=== PATIENT | female | born 1935 | race Caucasian/White ===

== ENCOUNTER 2018-11-19 15:59 | Inpatient (IN) | payer OTHER, MEDICAID ==
[~2018-11-19] VITALS: Ht 167.6 cm; Wt 80.3 kg
[2018-11-19 15:59] VITALS: BP_SYST 145
[2018-11-19] MEDS ORDERED: ONDANSETRON HCL 4 MG/2 ML VIAL IVP ONE (16:15)
[2018-11-19] MEDS ORDERED: fentaNYL CITRATE/PF 100 MCG/2 ML AMP IVP ONE ×2 (16:15→17:15)
[2018-11-19] MEDS ORDERED: NACL 0.9% 1,000 ML IV ONE (16:30)
[2018-11-19 16:32] LABS: BASOPHILS # (AUTO) 0.1 K/uL (0.0-0.2); BASOPHILS % (AUTO) 0.8 % (0.0-2.0); EOSINOPHILS % (AUTO) 0.3 % (0.0-4.0); HEMATOCRIT 31.4 % (36-48); HEMOGLOBIN 10.3 g/dL (12.0-16.0); LYMPHOCYTES # (AUTO) 2.7 K/uL (1.0-5.5); LYMPHOCYTES % (AUTO) 23.4 % (20.5-51.5); MEAN CORPUSCULAR HEMOGLOBIN 30 pg (27-31); MEAN CORPUSCULAR HGB CONC 33 % (32-36); MEAN CORPUSCULAR VOLUME 93 fL (79.0-98.0); MONOCYTES # (AUTO) 1.2 K/uL (0.0-1.0); MONOCYTES % (AUTO) 10.8 % (1.7-9.3); NEUTROPHILS # (AUTO) 7.5 K/uL (1.8-7.7); NEUTROPHILS % (AUTO) 64.7 % (40.0-70.0); PLATELET COUNT (AUTO) 230 K/uL (130-430); RED BLOOD CELL COUNT(AUTO) 3.39 MIL/uL (4.2-6.2); RED CELL DISTRIBUTION WIDTH 13.9 % (9.0-15.0); WHITE BLOOD COUNT (AUTO) 11.5 K/uL (4.8-10.8)
[2018-11-19 16:35] LABS: ANION GAP 10 (5-15); CALCIUM 8.8 mg/dL (8.4-11.0); CHLORIDE 103 mmol/L (98-107); CREATININE 0.98 mg/dL (0.55-1.30); GLUCOSE 102 mg/dL (70-99); POTASSIUM 4.4 mmol/L (3.5-5.1); SODIUM SERUM 140 mmol/L (136-145); UREA NITROGEN, BLOOD 26 mg/dL (8-21)
[2018-11-19 16:41] LABS: ALANINE AMINOTRANSFERASE 15 U/L (12-78); ALBUMIN 3.2 g/dL (3.4-4.8); ASPARTATE AMINOTRANSFERASE 18 U/L (10-37); TOTAL BILIRUBIN 0.7 mg/dL (0.0-1.0)
[2018-11-19 16:49] LABS: BILIRUBIN,URINE NEGATIVE (NEGATIVE); BLOOD, URINE NEGATIVE (NEGATIVE); CLARITY/URINE SL CLOUDY (CLEAR); COLOR,URINE YELLOW (YELLOW); GLUCOSE,URINE NEGATIVE (NEGATIVE); KETONES,URINE NEGATIVE (NEGATIVE); LEUKOCYTE ESTERASE ,URINE NEGATIVE (NEGATIVE); NITRITE, URINE NEGATIVE (NEGATIVE); PROTEIN URINE NEGATIVE (NEGATIVE)
[2018-11-19] MEDS ORDERED: IBUP-1619 PO (17:02)
[2018-11-19] MEDS ORDERED: ACET325C6 PO (17:02)
[2018-11-19] MEDS ORDERED: GABA-529 PO (17:02)
[2018-11-19] MEDS ORDERED: FLUT1DIS5 IH (17:02)
[2018-11-19] MEDS ORDERED: SER100 PO (17:02)
[2018-11-19] MEDS ORDERED: DOCU250C14 PO (17:02)
[2018-11-19] MEDS ORDERED: DULO30CA52 PO (17:02)
[2018-11-19 17:32] LABS: BACTERIA,URINE FEW /HPF (None Seen); RBC,URINE NONE SEEN /HPF (0-3)
[2018-11-19 17:33] LABS: FINE GRANULAR CASTS,URINE 0-10 /LPF (None Seen); MUCUS,URINE 1+ /LPF (None Seen)
[2018-11-19 18:59] VITALS: BP_SYST 124
[2018-11-19] MEDS ORDERED: ONDANSETRON HCL 4 MG/2 ML VIAL IVP PRN (19:15)
[2018-11-19] MEDS ORDERED: ACETAMINOPHEN 325 MG TABLET PO PRN (19:15)
[2018-11-19] MEDS ORDERED: IPRATROPIUM/ALBUTEROL SULFATE 3 ML AMPUL.NEB (DUONEB) INH PRN (19:30)
[2018-11-19] MEDS ORDERED: BUDESONIDE 0.5 MG/2 ML AMPUL.NEB INH ONE (20:00)
[2018-11-19] MEDS ORDERED: ALBUTEROL SULFATE 0.083% 2.5 MG/3 ML VIAL.NEB INH ONE (20:00)
[2018-11-19 20:30] VITALS: BP_SYST 111
[2018-11-19] MEDS ORDERED: NON-FORMULARY MEDICATION (Fluticasone/Salmeterol (Advair 500-50 Diskus) 1 EACH) IH SCH (21:00)
[2018-11-19] MEDS ORDERED: D5/0.45 NS 1,000 ML IV SCH (21:45)
[2018-11-19 22:00] VITALS: BP_SYST 124
[2018-11-19] MEDS: cefTRIAXone 1 GM IVPB PREMIX 50 ML IV SCH (22:21)
[2018-11-19] MEDS: GABAPENTIN 100 MG CAPSULE PO SCH (22:35)
[2018-11-19] MEDS: DOCUSATE SODIUM 100 MG CAPSULE PO SCH (22:35)
[2018-11-19] MEDS: DULoxetine HCL 30 MG CAPSULE.DR (CYMBALTA) PO SCH (22:35)
[2018-11-19] MEDS: QUEtiapine FUMARATE 100 MG TABLET PO SCH (22:36)
[2018-11-20] VITALS: BP_SYST 121
[2018-11-20] MEDS: ALBUTEROL SULFATE 0.083% 2.5 MG/3 ML VIAL.NEB INH SCH ×4 (01:00→20:02)
[2018-11-20 05:36] LABS: BASOPHILS # (AUTO) 0.1 K/uL (0.0-0.2); BASOPHILS % (AUTO) 0.9 % (0.0-2.0); EOSINOPHILS # (AUTO) 0.2 K/uL (0.0-0.4); EOSINOPHILS % (AUTO) 1.7 % (0.0-4.0); HEMATOCRIT 27.3 % (36-48); LYMPHOCYTES # (AUTO) 2.9 K/uL (1.0-5.5); LYMPHOCYTES % (AUTO) 28.3 % (20.5-51.5); MEAN CORPUSCULAR HEMOGLOBIN 31 pg (27-31); MEAN CORPUSCULAR HGB CONC 33 % (32-36); MEAN CORPUSCULAR VOLUME 93 fL (79.0-98.0); MONOCYTES # (AUTO) 1.4 K/uL (0.0-1.0); MONOCYTES % (AUTO) 14.1 % (1.7-9.3); NEUTROPHILS # (AUTO) 5.6 K/uL (1.8-7.7); PLATELET COUNT (AUTO) 199 K/uL (130-430); RED BLOOD CELL COUNT(AUTO) 2.92 MIL/uL (4.2-6.2); RED CELL DISTRIBUTION WIDTH 13.8 % (9.0-15.0); WHITE BLOOD COUNT (AUTO) 10.2 K/uL (4.8-10.8)
[2018-11-20 05:59] LABS: PROTHROMBIN TIME 10.4 SECS (9.5-12.5)
[2018-11-20 06:19] LABS: ALANINE AMINOTRANSFERASE 13 U/L (12-78); ALBUMIN 2.7 g/dL (3.4-4.8); ANION GAP 5 (5-15); ASPARTATE AMINOTRANSFERASE 16 U/L (10-37); CALCIUM 8.2 mg/dL (8.4-11.0); CHLORIDE 108 mmol/L (98-107); CREATININE 0.79 mg/dL (0.55-1.30); GLUCOSE 105 mg/dL (70-99); POTASSIUM 4.2 mmol/L (3.5-5.1); SODIUM SERUM 141 mmol/L (136-145); TOTAL BILIRUBIN 0.4 mg/dL (0.0-1.0); UREA NITROGEN, BLOOD 23 mg/dL (8-21)
[2018-11-20] MEDS: BUDESONIDE 0.5 MG/2 ML AMPUL.NEB INH SCH ×2 (07:00→20:01)
[2018-11-20 08:04] VITALS: BP_SYST 96
[2018-11-20] MEDS: DOCUSATE SODIUM 100 MG CAPSULE PO SCH ×2 (09:00→21:20)
[2018-11-20] MEDS: QUEtiapine FUMARATE 100 MG TABLET PO SCH ×2 (09:00→21:21)
[2018-11-20] MEDS: DULoxetine HCL 30 MG CAPSULE.DR (CYMBALTA) PO SCH ×2 (09:00→21:21)
[2018-11-20] MEDS: GABAPENTIN 100 MG CAPSULE PO SCH ×2 (09:00→21:20)
[2018-11-20] MEDS ORDERED: VANCOMYCIN HCL 1 GM/NS PREMIX 250 ML IV ONE (10:00)
[2018-11-20] MEDS ORDERED: POLYMYXIN 500,000/BACIT.10,000 UNITS in NS IRR 1 L IR ONE (10:16)
[2018-11-20] MEDS ORDERED: LR 1,000 ML IV SCH (11:12)
[2018-11-20] MEDS ORDERED: MORPHINE 4 MG/ML INJ. SYRINGE IVP PRN ×3 (11:15)
[2018-11-20] MEDS ORDERED: METOCLOPRAMIDE HCL 10 MG/2 ML VIAL IVP PRN (11:15)
[2018-11-20] MEDS ORDERED: SEVOFLURANE 15 MIN GAS INH ONE (12:20)
[2018-11-20] MEDS ORDERED: ONDANSETRON HCL 4 MG/2 ML VIAL ONE (12:20)
[2018-11-20] MEDS ORDERED: MORPHINE SULFATE 10MG/10ML PF AMP ONE (12:20)
[2018-11-20] MEDS ORDERED: PROPOFOL 200MG/ 20ML VIAL (DIPRIVAN) IV ONE (12:20)
[2018-11-20] MEDS ORDERED: LR 1,000 ML IV.SOLN IV ONE (12:20)
[2018-11-20] MEDS ORDERED: MIDAZOLAM HCL 5 MG/ML VIAL (VERSED) IV ONE (12:20)
[2018-11-20] MEDS ORDERED: fentaNYL 2MCG/ML ROPIVACAINE 0.2% 100 ML EPIDURAL BAG EP ONE (12:20)
[2018-11-20] MEDS ORDERED: ROCURONIUM BROMIDE 10 MG/ML (ZEMURON) ONE (12:20)
[2018-11-20] MEDS ORDERED: DIPHENHYDRAMINE HCL 25 MG CAPSULE PO PRN (12:30)
[2018-11-20] MEDS ORDERED: SENNOSIDES 8.6 MG TABLET PO PRN (12:30)
[2018-11-20] MEDS ORDERED: ACETAMINOPHEN 325 MG TABLET PO PRN (12:30)
[2018-11-20] MEDS ORDERED: ONDANSETRON HCL 4 MG/2 ML VIAL IVP PRN (12:30)
[2018-11-20] MEDS ORDERED: MILK OF MAGNESIA 30 ML UDC PO PRN (12:30)
[2018-11-20] MEDS: D5LR 1,000 ML IV SCH (15:06)
[2018-11-20 16:30] VITALS: BP_SYST 119
[2018-11-20] MEDS: MORPHINE 2 MG/ML INJ. SYRINGE IVP PRN (18:52)
[2018-11-20 19:44] VITALS: BP_SYST 113
[2018-11-20] MEDS: HYDROcodone/ACETAMIN 5-325 MG TAB (NORCO/ VICODIN) PO PRN (19:52)
[2018-11-20] MEDS: cefTRIAXone 1 GM IVPB PREMIX 50 ML IV SCH (20:00)
[2018-11-21] VITALS: BP_SYST 104
[2018-11-21] MEDS: D5LR 1,000 ML IV SCH ×3 (01:16→18:27)
[2018-11-21] MEDS: ALBUTEROL SULFATE 0.083% 2.5 MG/3 ML VIAL.NEB INH SCH ×3 (07:44→19:45)
[2018-11-21] MEDS: BUDESONIDE 0.5 MG/2 ML AMPUL.NEB INH SCH ×2 (07:44→19:45)
[2018-11-21 07:48] LABS: BASOPHILS # (AUTO) 0.1 K/uL (0.0-0.2); BASOPHILS % (AUTO) 0.8 % (0.0-2.0); EOSINOPHILS # (AUTO) 0.1 K/uL (0.0-0.4); EOSINOPHILS % (AUTO) 0.6 % (0.0-4.0); HEMATOCRIT 23.3 % (36-48); HEMOGLOBIN 7.7 g/dL (12.0-16.0); LYMPHOCYTES # (AUTO) 2.2 K/uL (1.0-5.5); LYMPHOCYTES % (AUTO) 19.7 % (20.5-51.5); MEAN CORPUSCULAR HEMOGLOBIN 31 pg (27-31); MEAN CORPUSCULAR HGB CONC 33 % (32-36); MEAN CORPUSCULAR VOLUME 94 fL (79.0-98.0); MONOCYTES # (AUTO) 1.8 K/uL (0.0-1.0); MONOCYTES % (AUTO) 15.8 % (1.7-9.3); NEUTROPHILS % (AUTO) 63.1 % (40.0-70.0); PLATELET COUNT (AUTO) 181 K/uL (130-430); RED BLOOD CELL COUNT(AUTO) 2.48 MIL/uL (4.2-6.2); RED CELL DISTRIBUTION WIDTH 13.8 % (9.0-15.0); WHITE BLOOD COUNT (AUTO) 11.1 K/uL (4.8-10.8)
[2018-11-21 07:59] LABS: ANION GAP 6 (5-15); CHLORIDE 108 mmol/L (98-107); CREATININE 0.96 mg/dL (0.55-1.30); GLUCOSE 155 mg/dL (70-99); POTASSIUM 4.4 mmol/L (3.5-5.1); SODIUM SERUM 140 mmol/L (136-145); UREA NITROGEN, BLOOD 18 mg/dL (8-21)
[2018-11-21 08:00] VITALS: BP_SYST 110
[2018-11-21] MEDS: MORPHINE 2 MG/ML INJ. SYRINGE IVP PRN ×2 (08:23→13:48)
[2018-11-21] MEDS ORDERED: ACETAMINOPHEN 325 MG TABLET PO ONE (08:30)
[2018-11-21] MEDS ORDERED: DIPHENHYDRAMINE HCL 12.5 MG/5 ML UDC NG ONE (08:30)
[2018-11-21] MEDS: QUEtiapine FUMARATE 100 MG TABLET PO SCH ×2 (08:58→22:13)
[2018-11-21] MEDS: GABAPENTIN 100 MG CAPSULE PO SCH ×2 (08:58→22:13)
[2018-11-21] MEDS: DOCUSATE SODIUM 100 MG CAPSULE PO SCH ×2 (08:58→22:13)
[2018-11-21] MEDS: DULoxetine HCL 30 MG CAPSULE.DR (CYMBALTA) PO SCH ×2 (08:58→22:13)
[2018-11-21] MEDS: ENOXAPARIN SODIUM 40 MG/0.4 ML SYRINGE SUBCUT SCH (08:58)
[2018-11-21] MEDS ORDERED: VANCOMYCIN HCL 1 GM/NS PREMIX 250 ML IV ONE (10:00)
[2018-11-21 16:45] VITALS: BP_SYST 100
[2018-11-21] MEDS: cefTRIAXone 1 GM IVPB PREMIX 50 ML IV SCH (20:24)
[2018-11-21] MEDS: HYDROcodone/ACETAMIN 5-325 MG TAB (NORCO/ VICODIN) PO PRN (20:31)
[2018-11-21 20:36] VITALS: BP_SYST 110
[2018-11-22] MEDS: ALBUTEROL SULFATE 0.083% 2.5 MG/3 ML VIAL.NEB INH SCH ×4 (01:00→19:00)
[2018-11-22 01:30] VITALS: BP_SYST 116
[2018-11-22] MEDS: BUDESONIDE 0.5 MG/2 ML AMPUL.NEB INH SCH ×2 (07:47→19:00)
[2018-11-22 07:51] VITALS: BP_SYST 108
[2018-11-22] MEDS: QUEtiapine FUMARATE 100 MG TABLET PO SCH ×2 (09:19→20:14)
[2018-11-22] MEDS: DOCUSATE SODIUM 100 MG CAPSULE PO SCH ×2 (09:19→20:14)
[2018-11-22] MEDS: GABAPENTIN 100 MG CAPSULE PO SCH ×2 (09:19→20:14)
[2018-11-22] MEDS: DULoxetine HCL 30 MG CAPSULE.DR (CYMBALTA) PO SCH ×2 (09:19→20:14)
[2018-11-22] MEDS: MORPHINE 2 MG/ML INJ. SYRINGE IVP PRN (09:26)
[2018-11-22] MEDS: ENOXAPARIN SODIUM 40 MG/0.4 ML SYRINGE SUBCUT SCH (09:28)
[2018-11-22] MEDS: VANCOMYCIN HCL 1,250 MG in NS 250 ML IV SCH (12:00)
[2018-11-22 12:30] VITALS: BP_SYST 103
[2018-11-22 13:12] LABS: MEAN CORPUSCULAR HEMOGLOBIN 30 pg (27-31); MEAN CORPUSCULAR HGB CONC 33 % (32-36); MEAN CORPUSCULAR VOLUME 91 fL (79.0-98.0); PLATELET COUNT (AUTO) 193 K/uL (130-430); RED CELL DISTRIBUTION WIDTH 15.4 % (9.0-15.0); WHITE BLOOD COUNT (AUTO) 15.4 K/uL (4.8-10.8)
[2018-11-22 14:14] LABS: LYMPHOCYTES % (MANUAL) 20 % (20-46)
[2018-11-22 14:15] LABS: BASOPHILS % (MANUAL) 0 % (0-2); EOSINOPHILS % (MANUAL) 0 % (0-7); MONOCYTES % (MANUAL) 10 % (0-11)
[2018-11-22 14:43] VITALS: BP_SYST 103
[2018-11-22 16:35] VITALS: BP_SYST 129
[2018-11-22] MEDS: HYDROcodone/ACETAMIN 5-325 MG TAB (NORCO/ VICODIN) PO PRN (16:41)
[2018-11-22 20:00] VITALS: BP_SYST 99
[2018-11-22] MEDS: cefTRIAXone 1 GM IVPB PREMIX 50 ML IV SCH (20:00)
[2018-11-23] MEDS: ALBUTEROL SULFATE 0.083% 2.5 MG/3 ML VIAL.NEB INH SCH ×3 (00:25→19:00)
[2018-11-23] MEDS: D5LR 1,000 ML IV SCH ×3 (00:27→20:38)
[2018-11-23 00:45] VITALS: BP_SYST 108
[2018-11-23] MEDS: BUDESONIDE 0.5 MG/2 ML AMPUL.NEB INH SCH ×2 (07:17→19:00)
[2018-11-23 07:51] VITALS: BP_SYST 124
[2018-11-23] MEDS: DULoxetine HCL 30 MG CAPSULE.DR (CYMBALTA) PO SCH ×2 (08:52→20:35)
[2018-11-23] MEDS: GABAPENTIN 100 MG CAPSULE PO SCH ×2 (08:52→20:35)
[2018-11-23] MEDS: DOCUSATE SODIUM 100 MG CAPSULE PO SCH ×2 (08:52→20:35)
[2018-11-23] MEDS: QUEtiapine FUMARATE 100 MG TABLET PO SCH ×2 (08:57→20:35)
[2018-11-23] MEDS: HYDROcodone/ACETAMIN 5-325 MG TAB (NORCO/ VICODIN) PO PRN ×2 (08:57→18:36)
[2018-11-23] MEDS: ENOXAPARIN SODIUM 40 MG/0.4 ML SYRINGE SUBCUT SCH (08:59)
[2018-11-23] MEDS: cefTRIAXone 1 GM IVPB PREMIX 50 ML IV SCH (09:01)
[2018-11-23] MEDS: VANCOMYCIN HCL 1,250 MG in NS 250 ML IV SCH (10:23)
[2018-11-23 11:43] LABS: BASOPHILS # (AUTO) 0.1 K/uL (0.0-0.2); BASOPHILS % (AUTO) 0.8 % (0.0-2.0); EOSINOPHILS # (AUTO) 0.3 K/uL (0.0-0.4); EOSINOPHILS % (AUTO) 3.1 % (0.0-4.0); HEMATOCRIT 27.6 % (36-48); HEMOGLOBIN 9.2 g/dL (12.0-16.0); LYMPHOCYTES # (AUTO) 2.5 K/uL (1.0-5.5); LYMPHOCYTES % (AUTO) 22.6 % (20.5-51.5); MEAN CORPUSCULAR HEMOGLOBIN 30 pg (27-31); MEAN CORPUSCULAR HGB CONC 33 % (32-36); MEAN CORPUSCULAR VOLUME 91 fL (79.0-98.0); MONOCYTES # (AUTO) 1.2 K/uL (0.0-1.0); MONOCYTES % (AUTO) 10.9 % (1.7-9.3); NEUTROPHILS # (AUTO) 6.8 K/uL (1.8-7.7); NEUTROPHILS % (AUTO) 62.6 % (40.0-70.0); PLATELET COUNT (AUTO) 239 K/uL (130-430); RED BLOOD CELL COUNT(AUTO) 3.03 MIL/uL (4.2-6.2); RED CELL DISTRIBUTION WIDTH 15.4 % (9.0-15.0); WHITE BLOOD COUNT (AUTO) 10.9 K/uL (4.8-10.8)
[2018-11-23 11:51] LABS: ANION GAP 4 (5-15); CALCIUM 8.2 mg/dL (8.4-11.0); CHLORIDE 106 mmol/L (98-107); CREATININE 0.76 mg/dL (0.55-1.30); GLUCOSE 106 mg/dL (70-99); POTASSIUM 4.2 mmol/L (3.5-5.1); SODIUM SERUM 137 mmol/L (136-145); UREA NITROGEN, BLOOD 16 mg/dL (8-21)
[2018-11-23 12:28] VITALS: BP_SYST 102
[2018-11-23 16:35] VITALS: BP_SYST 114
[2018-11-23 20:00] VITALS: BP_SYST 118
[2018-11-24] VITALS: BP_SYST 96
[2018-11-24] MEDS: ALBUTEROL SULFATE 0.083% 2.5 MG/3 ML VIAL.NEB INH SCH ×4 (00:55→19:36)
[2018-11-24] MEDS: D5LR 1,000 ML IV SCH ×2 (05:09→16:27)
[2018-11-24] MEDS: BUDESONIDE 0.5 MG/2 ML AMPUL.NEB INH SCH ×2 (07:12→19:36)
[2018-11-24] MEDS: DOCUSATE SODIUM 100 MG CAPSULE PO SCH ×2 (09:38→21:51)
[2018-11-24] MEDS: QUEtiapine FUMARATE 100 MG TABLET PO SCH ×2 (09:38→21:51)
[2018-11-24] MEDS: cefTRIAXone 1 GM IVPB PREMIX 50 ML IV SCH (09:38)
[2018-11-24] MEDS: GABAPENTIN 100 MG CAPSULE PO SCH ×2 (09:39→21:51)
[2018-11-24] MEDS: DULoxetine HCL 30 MG CAPSULE.DR (CYMBALTA) PO SCH ×2 (09:39→21:51)
[2018-11-24] MEDS: ENOXAPARIN SODIUM 40 MG/0.4 ML SYRINGE SUBCUT SCH (09:41)
[2018-11-24] MEDS: VANCOMYCIN HCL 1,250 MG in NS 250 ML IV SCH (10:39)
[2018-11-24] MEDS: HYDROcodone/ACETAMIN 5-325 MG TAB (NORCO/ VICODIN) PO PRN ×2 (10:48→20:21)
[2018-11-24 11:41] VITALS: BP_SYST 136
[2018-11-24 15:22] VITALS: BP_SYST 103
[2018-11-24 20:10] VITALS: BP_SYST 114
[2018-11-25 00:06] VITALS: BP_SYST 97
[2018-11-25] MEDS: ALBUTEROL SULFATE 0.083% 2.5 MG/3 ML VIAL.NEB INH SCH ×3 (01:00→13:19)
[2018-11-25] MEDS: D5LR 1,000 ML IV SCH ×2 (05:01→12:27)
[2018-11-25] MEDS: BUDESONIDE 0.5 MG/2 ML AMPUL.NEB INH SCH (07:42)
[2018-11-25] MEDS: MORPHINE 2 MG/ML INJ. SYRINGE IVP PRN (08:55)
[2018-11-25] MEDS: DULoxetine HCL 30 MG CAPSULE.DR (CYMBALTA) PO SCH (09:46)
[2018-11-25] MEDS: GABAPENTIN 100 MG CAPSULE PO SCH (09:46)
[2018-11-25] MEDS: DOCUSATE SODIUM 100 MG CAPSULE PO SCH (09:46)
[2018-11-25] MEDS: QUEtiapine FUMARATE 100 MG TABLET PO SCH (09:46)
[2018-11-25] MEDS: ENOXAPARIN SODIUM 40 MG/0.4 ML SYRINGE SUBCUT SCH (09:48)
[2018-11-25] MEDS ORDERED: CEFEPIME 1 GM in D5W 50 ML IV SCH (10:00)
[2018-11-25] MEDS: HYDROcodone/ACETAMIN 5-325 MG TAB (NORCO/ VICODIN) PO PRN ×2 (11:22→18:25)
[2018-11-25] MEDS: VANCOMYCIN HCL 1,250 MG in NS 250 ML IV SCH (11:25)
[2018-11-25] MEDS ORDERED: LORazepam 2 MG/ML VIAL IVP ONE (13:00)
[2018-11-25 13:01] VITALS: BP_SYST 112
[2018-11-25 13:33] LABS: PROTHROMBIN TIME 9.7 SECS (9.5-12.5)
[2018-11-25 16:13] VITALS: BP_SYST 112
[2018-11-25 16:37] VITALS: BP_SYST 107
== END 2018-11-25 18:50 | DRG 981 ==
LOC: SED 15:59 → SMU 17:35
PROVIDERS: ADMIT Internal Medicine; ATTEND Internal Medicine
PROC: 0QS706Z Reposition Left Upper Femur with Intramedullary Internal Fixation Device, Open Approach (ICD-10-PCS; principal; 2018-11-20 10:00)
PROC: 30233N1 Transfusion of Nonautologous Red Blood Cells into Peripheral Vein, Percutaneous Approach (ICD-10-PCS; 2018-11-21)
PROC: 02HV33Z Insertion of Infusion Device into Superior Vena Cava, Percutaneous Approach (ICD-10-PCS; 2018-11-25)
PROC: B548ZZA Ultrasonography of Superior Vena Cava, Guidance (ICD-10-PCS; 2018-11-25)
DX: T82.848A Pain due to vascular prosthetic devices, implants and grafts, initial encounter (principal); S72.142A Displaced intertrochanteric fracture of left femur, initial encounter for closed fracture; J18.9 Pneumonia, unspecified organism; N39.0 Urinary tract infection, site not specified; R78.81 Bacteremia; I38 Endocarditis, valve unspecified; F20.9 Schizophrenia, unspecified; B95.8 Unspecified staphylococcus as the cause of diseases classified elsewhere; F03.90 Unspecified dementia, unspecified severity, without behavioral disturbance, psychotic disturbance, mood disturbance, and anxiety; I25.10 Atherosclerotic heart disease of native coronary artery without angina pectoris; J44.9 Chronic obstructive pulmonary disease, unspecified; M19.90 Unspecified osteoarthritis, unspecified site; M48.061 Spinal stenosis, lumbar region without neurogenic claudication; D64.9 Anemia, unspecified; W18.39XA Other fall on same level, initial encounter; G62.9 Polyneuropathy, unspecified; N18.9 Chronic kidney disease, unspecified; I12.9 Hypertensive chronic kidney disease with stage 1 through stage 4 chronic kidney disease, or unspecified chronic kidney disease; Z87.891 Personal history of nicotine dependence; Z79.899 Other long term (current) drug therapy; Y93.89 Activity, other specified; Y92.89 Other specified places as the place of occurrence of the external cause; Y99.8 Other external cause status
CPT/HCPCS: 36415; 71045; 72170-TC; 76001; 80048; 80053; 81000-TC; 83605; 85007; 85025; 85027; 85610-TC; 85730-TC; 86886; 86900; 86901; 86920; 87040-TC; 87081; 87086; 87186-TC; 93005; 94010; 94640; 94760; 96361; 96374; 96375; 96376; 97110-GP; 97530-GP; 99285; C1713; C1751; J0692; J0696; J1650; J2250; J2270; J2274; J2405; J2704; J3010; J3370; J7050; J7060; J7120; J7613; J7626; P9021; Q0163

== ENCOUNTER 2018-11-27 23:07 | Inpatient (IN) | payer OTHER, MEDICAID ==
[~2018-11-27] VITALS: Ht 167.6 cm; Wt 86.2 kg
[~2018-11-27 23:07] MED LIST: ACET325C6 PO; DOCU250C14 PO; DULO30CA52 PO; FLUT1DIS5 IH; GABA-529 PO; IBUP-1619 PO; SER100 PO
[2018-11-28] VITALS (7 sets, daily range): BP systolic 103–118
--- NOTE | 2018-11-28 00:04 | NUR ---
ADMISSION NOTE Received patient a direct admit from [facility], report received from medic personnel. Patient admitted with diagnosis of Bacteremia. Patient oriented to hospital routine, call light.
--- NOTE | 2018-11-28 00:30 | NUR ---
INITIAL NOTE AT INITIAL ASSESSMENT, PATIENT IS RESTING IN BED, STABLE, NO SIGNS OF RESPIRATORY DISTRESS. PATIENT VERBALIZES NO PAIN AT THIS TIME. PLAN OF CARE FOR THE EVENING IS COMMUNICATED WITH THE PATIENT. CALL LIGHT IS WITHIN REACH. BED IS LOCKED, ALARMED, AND AT THE LOWEST LEVEL. FALL AND SAFETY PRECAUTIONS WILL BE IN PLACE THROUGHOUT THE SHIFT.
--- NOTE | 2018-11-28 00:40 | NUR ---
paged paged for Dr Veliz, dialed . s/w Tory.
--- NOTE | 2018-11-28 00:45 | NUR ---
COMMUNICATION WITH Padilla NICHOLSON. dAriano NICHOLSON PAGED BACK AT THIS TIME, PHYSICIAN HAS ADMIT ORDERS FOR OBSERVATION. MD HAS REQUESTED MEDICATION SHEET FROM PATIENT'S NURSING FACILITY; PATIENT'S ONLY MEDICATIONS FROM [facility] (VANCOMYCIN AND CEFEPIME) COMMUNICATED; DR. KOEHLER IS REQUESTING FOR THE REST OF PATIENT'S MEDICATIONS FROM HER NURSING FACILITY. PATIENT'S NURSING FACILITY ([facility]) WILL BE PAGED IMMEDIATELY FOR FAXED COPY OF PATIENT'S MEDICATION LIST TO BE PROVIDED TO DR. KOEHLER IMMEDIATELY. Addendum: 11/28/18 at 0130 by Gloria Mosqueda RN CHARGE NURSE ROBERT PURI
--- NOTE | 2018-11-28 00:55 | NUR ---
[facility] [place], dialed . s/w Archie, requested for the patient's list of medications.
[2018-11-28] MEDS ORDERED: NON-FORMULARY MEDICATION (Acetaminophen (Tylenol) 650 MG) PO SCH (01:15)
[2018-11-28] MEDS ORDERED: NON-FORMULARY MEDICATION (Ibuprofen 200 MG) PO SCH (01:15)
[2018-11-28] MEDS ORDERED: CEFEPIME 1 GM in D5W 50 ML IV SCH (01:15)
[2018-11-28] MEDS ORDERED: VANCOMYCIN HCL 1 GM/NS PREMIX 250 ML IV SCH ×2 (01:15→01:45)
--- NOTE | 2018-11-28 01:16 | NUR ---
[facility] second call to [facility], dialed . s/w Archie, followed-up with requested for the patient's list of medications. stated that he will fax again.
--- NOTE | 2018-11-28 01:30 | NUR ---
PATIENT REFUSES IV PLACEMENT PATIENT IS REFUSING IV PLACEMENT AT THIS TIME DESPITE EDUCATIONAL EFFORTS. WILL CONTINUE TO ENCOURAGE THROUGHOUT THE SHIFT.
[2018-11-28] MEDS ORDERED: ALBUTEROL SULFATE 0.083% 2.5 MG/3 ML VIAL.NEB INH PRN (01:45)
[2018-11-28] MEDS ORDERED: IBUPROFEN 200 MG TABLET PO PRN (01:45)
[2018-11-28] MEDS ORDERED: ACETAMINOPHEN 500 MG TABLET PO PRN (01:45)
--- NOTE | 2018-11-28 02:00 | NUR ---
NOTE PATIENT IS SLEEPING, STABLE, NO SIGNS OF RESPIRATORY DISTRESS. CALL LIGHT IS WITHIN REACH. BED IS LOCKED, ALARMED, AND AT THE LOWEST LEVEL.
--- NOTE | 2018-11-28 04:00 | NUR ---
NOTE PATIENT IS SLEEPING, STABLE, NO SIGNS OF RESPIRATORY DISTRESS. CALL LIGHT IS WITHIN REACH. BED IS LOCKED, ALARMED, AND AT THE LOWEST LEVEL.
--- NOTE | 2018-11-28 04:04 | NUR ---
Psych Consultation Paged Reason for consultation: Schizophrenia Was consult called: Yes Person who was notified: Marcie Consulting Physician: Dr Cage Fire Equipment Inspector Helper Specialty: Psych Fire Equipment Inspector Helper Ordered By: Dr Veliz
--- NOTE | 2018-11-28 04:09 | NUR ---
ID Consultation Paged Reason for consultation: Bacteremia Was consult called: Yes Person who was notified: Marcie Consulting Physician: Dr Denise; Dr Courtney is on-call Special Events Planner Specialty: ID Special Events Planner Ordered By: Dr Veliz
--- NOTE | 2018-11-28 06:00 | NUR ---
CLOSING NOTE PATIENT SLEPT WELL THROUGHOUT THE SHIFT, HER MOOD BECAME UNCOOPERATIVE TO PROTOCOL ADMISSION INTERVENTIONS SOON AFTER SHE WAS ADMITTED. AM NURSE MADE AWARE. AT THIS TIME, PATIENT IS RESTING IN BED, STABLE, NO SIGNS OF RESPIRATORY DISTRESS. CALL LIGHT IS WITHIN REACH. BED IS LOCKED, ALARMED, AND AT THE LOWEST LEVEL. FALL AND SAFETY PRECAUTIONS HAVE BEEN TAKEN THROUGHOUT THE SHIFT. WILL CONTINUE TO MONITOR UNTIL SHIFT REPORT IS GIVEN AT BEDSIDE TO AM NURSE.
--- NOTE | 2018-11-28 06:10 | NUR ---
PATIENT REFUSES LAB DRAW PATIENT IS REFUSING LAB DRAW AT THIS TIME, COTTON ACREAGE MEASURER REQUESTED TO TRY AGAIN LATER, COTTON ACREAGE MEASURER VERBALIZED BACK REQUEST. WILL COMMUNICATE TO AM NURSE.
--- NOTE | 2018-11-28 06:15 | NUR ---
UNABLE TO REACH CONSERVATOR PATIENT'S CONSERVATOR (BROOKE ZHAO [phone]) PAGED AT THIS TIME FOR PICC LINE CONSENT. VOICEMAIL REACHED WAS FOR A DENTAL COMPANY, WILL ENDORSE TO AM SHIFT TO FOLLOW UP WITH CORRECT PHONE NUMBER FOR PATIENT'S CONSERVATOR.
--- NOTE | 2018-11-28 07:50 | NUR ---
OPENING NOTE PATIENT AWAKE IN BED. A/OX1. ROOM AIR. NO ACUTE DISTRESS. NO SOB. RESPIRATION EVEN AND UNLABORED. SKIN WARM AND DRY TO TOUCH. NO IV LINE. AWAITING FOR PICC LINE INSERTION. PATIENT S/P LEFT HIP ORIF WITH STERI STRIPS INTACT AND NO BLEEDING/DISCHARGE NOTED. BED IN LOW AND LOCKED POSITION. SIDERAIL UPX3. BED ALARM ON. ORIENTED PATIENT TO ROOM, BED AND CALL LIGHT. ALL NEEDS MET. CONT TO MONITOR WITH FREQUENT VISUAL CHECKS
--- NOTE | 2018-11-28 08:34 | NUR ---
Patient alert/oriented to herself refused for IV insertion for antibiotic medication.
[2018-11-28] MEDS ORDERED: QUEtiapine FUMARATE 100 MG TABLET PO SCH (09:00)
--- NOTE | 2018-11-28 09:00 | NUR ---
SPOKE TO AND REPORTED TO MD PATIENT IS REFUSING BLOOD DRAW AND PERIPHERAL IV INSERTION. RECEIVED ORDER FROM FOR BILAT SOFT WRIST RESTRAINTS, PICC LINE AND DAMON EVALUATION. ORDER NOTED AND CARRIED OUT. Addendum: 11/28/18 at 1430 by Shauna Marquis RN PICC LINE ORDER GIVEN TO CERAMIC MOLD DESIGNER; AWAITING FOR CALL BACK
--- NOTE | 2018-11-28 09:09 | NUR ---
Consent for PICC LINE/RESTRAINST Spoke to patient decision maker Nataliia Garcia , consent for PICC LINE insertion for IV antibiotic ,Bilateral wrist restraints patient uncooperative pulling out lines,confusion at time , risk of falling given.
[2018-11-28] MEDS: DULoxetine HCL 30 MG CAPSULE.DR (CYMBALTA) PO SCH ×2 (09:21→21:38)
[2018-11-28] MEDS: QUEtiapine FUMARATE 100 MG TABLET PO SCH ×2 (09:21→21:39)
[2018-11-28] MEDS: DOCUSATE SODIUM 250 MG CAPSULE PO SCH (09:21)
[2018-11-28] MEDS: GABAPENTIN 100 MG CAPSULE PO SCH ×2 (09:21→21:38)
[2018-11-28] MEDS: ENOXAPARIN SODIUM 40 MG/0.4 ML SYRINGE SUBCUT SCH (09:22)
[2018-11-28] MEDS: CEFEPIME 1 GM in D5W 50 ML IV SCH (10:00)
--- NOTE | 2018-11-28 10:31 | NUR ---
Nutrition Update Kan Scale 17 noted. Pt admitted for bacteremia. Diet: regular BMI: 30.7 kg/m2 RD to follow per nutrition care standards.
--- NOTE | 2018-11-28 10:40 | NUR ---
SEEN AND EXAMINED BY AT BEDSIDE
[2018-11-28] MEDS ORDERED: LINEZOLID 600 MG TABLET PO ONE (10:45)
--- NOTE | 2018-11-28 11:00 | NUR ---
PICC PER PHP MYSQL WEB DEVELOPER JACKI WILL CALL BACK REGARDING PICC LINE INSERTION; AWAITING FOR CALL BACK
[2018-11-28 11:41] LABS: BASOPHILS # (AUTO) 0.1 K/uL (0.0-0.2); BASOPHILS % (AUTO) 1.2 % (0.0-2.0); EOSINOPHILS # (AUTO) 0.4 K/uL (0.0-0.4); EOSINOPHILS % (AUTO) 4.3 % (0.0-4.0); HEMATOCRIT 29.4 % (36-48); HEMOGLOBIN 9.7 g/dL (12.0-16.0); LYMPHOCYTES # (AUTO) 2.1 K/uL (1.0-5.5); LYMPHOCYTES % (AUTO) 22.8 % (20.5-51.5); MEAN CORPUSCULAR HEMOGLOBIN 30 pg (27-31); MEAN CORPUSCULAR HGB CONC 33 % (32-36); MEAN CORPUSCULAR VOLUME 91 fL (79.0-98.0); MONOCYTES # (AUTO) 0.9 K/uL (0.0-1.0); MONOCYTES % (AUTO) 10.5 % (1.7-9.3); NEUTROPHILS # (AUTO) 5.5 K/uL (1.8-7.7); NEUTROPHILS % (AUTO) 61.2 % (40.0-70.0); RED BLOOD CELL COUNT(AUTO) 3.23 MIL/uL (4.2-6.2); RED CELL DISTRIBUTION WIDTH 15.8 % (9.0-15.0)
[2018-11-28 11:51] LABS: ANION GAP 5 (5-15); CALCIUM 8.2 mg/dL (8.4-11.0); CHLORIDE 107 mmol/L (98-107); CREATININE 0.72 mg/dL (0.55-1.30); GLUCOSE 113 mg/dL (70-99); POTASSIUM 3.8 mmol/L (3.5-5.1); SODIUM SERUM 139 mmol/L (136-145); UREA NITROGEN, BLOOD 15 mg/dL (8-21)
[2018-11-28 11:56] LABS: PROTHROMBIN TIME 10.3 SECS (9.5-12.5)
[2018-11-28 12:16] LABS: PLATELET COUNT (AUTO) 512 K/uL (130-430)
--- NOTE | 2018-11-28 12:45 | NUR ---
NOTE PATIENT ATE A SMALL AMOUNT AT LUNCH AND REFUSED TO EAT ANYMORE. OFFERED PATIENT JELLO AND PATIENT OKAY. ALL NEEDS MET. CONT TO MONITOR. CALL LIGHT IN REACH.
--- NOTE | 2018-11-28 13:00 | NUR ---
PICC NO CALL BACK FROM JACKI PICC LINE NURSE. BREAKER OILER CALLED AGAIN. AWAITING FOR JACKI PICC LINE NURSE, TO CALL BACK.
--- NOTE | 2018-11-28 14:15 | NUR ---
NOTE INCONTINENCE CARE PROVIDED WITH TOBACCO WAREHOUSE AGENT, PT YURIDIA WELL. BMX1. REPOSITIONED FOR COMFORT. PATIENT C/O 08/04 FOR GENERALIZED PAIN; ADVIL ADMINISTERED ORDERED, YURIDIA WELL. CALL LIGHT IN REACH. ALL NEEDS MET. CONT TO MONITOR
--- NOTE | 2018-11-28 16:00 | NUR ---
NOTE PATIENT RESTING IN BED. STABLE. NO ACUTE DISTRESS. NO SOB. RESP EVEN AND UNLABORED. CALL LIGHT IN REACH. CONT TO MONITOR
--- NOTE | 2018-11-28 16:30 | NUR ---
PICC FOLLOWED UP ON PICC LINE NURSE; STILL NO CALL BACK. EYELET MAKER AWARE AND CALLED AGAIN. AWAITING CALL BACK FROM JACKI PICC LINE NURSE.
--- NOTE | 2018-11-28 18:40 | NUR ---
SEEN AND EXAMINED BY AT BEDSIDE. Addendum: 11/28/18 at 1850 by Shauna Marquis RN ORDERED PHYSICAL THERAPY EVAL; ORDER NOTED AND CARRIED OUT Addendum: 11/28/18 at 1850 by Shauna Marquis RN MADE AWARE PICC LINE NURSE WILL BE HERE AT [address] PICC LINE
--- NOTE | 2018-11-28 18:51 | NUR ---
CLOSING NOTE PATIENT IS AWAKE IN BED. NO S/SX PAIN. NO ACUTE DISTRESS. NO SOB. RESPIRATION EVEN AND UNLABORED. SKIN WARM AND DRY TO TOUCH. AWAITING FOR PICC LINE NURSE JACKI TO PLACE PICC; ETA 2100. KEPT CLEAN AND DRY. BED IN LOW AND LOCKED POSITION. SIDERAIL UPX3. BED ALARM ON. CALL LIGHT IN REACH. CONT TO MONITOR
--- NOTE | 2018-11-28 19:15 | NUR ---
change of shift.pt.presents affect;restless.loc;confused.pt.is ordered to submit to picc line placement;11/28/18.to f/u. no iv access present.general status stable.respiratory status stable;unlabored @room air.call light/telephone w/in reach of the pt.
--- NOTE | 2018-11-28 20:00 | NUR ---
pt.assessed.v/s assessed;values w/in normal limits.pt.presents affect;restless,loc;CONFSUED.Pt.PRESenTs REPEATED CALLs TO NSG. pt.assessed for cleanliness.pt.repositioned.pt.presents s/p:orif;lt.hip x-2-3 weeks.pt.repositioned.call light/telephone placed w/in reach of the pt.
--- NOTE | 2018-11-28 21:00 | NUR ---
2100p medications administered.pt.capable to consume whole.pt.had stated she presented pain.i have administered;tylenol:extra-strenght.i had preferred to administer advil but the advil is not stocked.to f/u re;pain medication efficacy per pain mgx protocol.
[2018-11-28] MEDS: LINEZOLID 600 MG TABLET PO SCH (21:39)
--- NOTE | 2018-11-28 22:00 | NUR ---
pt.assessed.pt.presents quiescent affect;calm,somnolent.pt.assessed for cleanliness.pt.repositioned.general status stable. respiratory status stale;unlabored.call light/telephone placed w/in the reach of the pt.
--- NOTE | 2018-11-28 23:00 | NUR ---
picc line rn;niles present.niles has placed th picc line;rt,bicept.x-ray confirmed placement;picc line;may be access;
--- NOTE | 2018-11-29 | NUR ---
pt.assessed.v/s assessed;values w/in normal limits.no c/o pain,nausea,.pt.assessed for cleanliness.pt repositioned.picc line intact;patent. general status stable.respiratory status stable;unlabored.call light/telephone placed w/in the reach of the pt.
--- NOTE | 2018-11-29 02:00 | NUR ---
pt.assessed.pt.presents quiescent affect;calm,somnolent.pt.assessed for cleanliness.pt.repositioned.picc line intact;patent.general status stable. respiratory status stable;unlabored.call light/telephone placed w/in reach of the pt.
--- NOTE | 2018-11-29 04:00 | NUR ---
pt.assessed.pt.presents quiescent affect;calm,somnolent.pt.assessed for cleanliness.pt.repositioned.picc line intact patent. general status stable.respiratory status stable;unlabored.call light/telephone placed w/in reach of the pt.
--- NOTE | 2018-11-29 05:24 | NUR ---
PAGED I PAGED DR. KOEHLER @ [phone] I SPOKE WITH INESS EXCHANGE
--- NOTE | 2018-11-29 05:50 | NUR ---
PAGED I PAGED DR. KOEHLER @ [phone] I SPOKE WITH INESS EXCHANGE THIS IS THE SECOND CALL
--- NOTE | 2018-11-29 06:00 | NUR ---
pt.assessed.pt.assessed for cleanliness.pt.cleaned.pt.repositioned.pt.had c/o pain;abdomen,lt.hip. paged. returned the page.i apprised of the pt's status.dr he ordered;norco;5/325mg po 1 tab q-6hrs/prn;pain.i apprised the pt. of the pain medication order pt.refused the medication.picc line intact;patent.call light/telephone placed w/in reach of the pt.
--- NOTE | 2018-11-29 08:00 | NUR ---
ASSUMPTION OF CARE: RECEIVED PT AWAKE, CONFUSED AT TIME, DX: RISK FOR INJURY, R/T S/P ORIF ON 11/24/18, PT HAS INCISION ON LEFT HIP WITH JUDITH AND STRI STRIPS IN PLACE, NO DRAINAGE NOTED, NO REDNESS OR SWELLING, PT IS AFEBRILE, VSS, BREATH SOUNDS ARE RHONCHI, BREATHING UNLABORED, IV SITE INTACT, PATENT, NO REDNESS OR SWELLING, NO S/S OF DISTRESS, ORIENTED TO CALL LIGHT, PLACED WITHIN REACH, WILL CON'T TO MONITOR AND ASSESS.
[2018-11-29] MEDS: QUEtiapine FUMARATE 100 MG TABLET PO SCH ×2 (08:59→21:17)
[2018-11-29] MEDS: DOCUSATE SODIUM 250 MG CAPSULE PO SCH (08:59)
[2018-11-29] MEDS: CEFEPIME 1 GM in D5W 50 ML IV SCH (08:59)
[2018-11-29] MEDS: DULoxetine HCL 30 MG CAPSULE.DR (CYMBALTA) PO SCH ×2 (09:00→21:17)
[2018-11-29] MEDS: GABAPENTIN 100 MG CAPSULE PO SCH ×2 (09:00→21:17)
[2018-11-29] MEDS: LINEZOLID 600 MG TABLET PO SCH ×2 (09:00→21:17)
--- NOTE | 2018-11-29 09:00 | NUR ---
CAD DESIGN ENGINEER: MORNING MEDS GIVEN, PER ORDERED BY Nory, TOLERATED WELL, WILL CON'T TO MONITOR AND ASSESS.
[2018-11-29] MEDS: ENOXAPARIN SODIUM 40 MG/0.4 ML SYRINGE SUBCUT SCH (09:02)
[2018-11-29] MEDS: HYDROcodone/ACETAMIN 5-325 MG TAB (NORCO/ VICODIN) PO PRN ×3 (09:03→23:34)
[2018-11-29 11:27] VITALS: BP_SYST 101
--- NOTE | 2018-11-29 15:00 | NUR ---
NURSES NOTES: PT REPOSITIONED FOR COMFORT, HEELS UP ON PILLOWS, CALL LIGHT WITHIN REACH, NO DISTRESS NOTED AT THIS TIME, IS RESTING PEACEFULLY, TOLERATING WELL, WILL CON'T WITH POC.
[2018-11-29 15:21] VITALS: BP_SYST 102
--- NOTE | 2018-11-29 18:00 | NUR ---
VISIT: AT BEDSIDE FOR ASSESSMENT OF PT, NEW ORDERS GIVEN, WILL CON'T TO MONITOR, WILL CON'T WITH POC.
[2018-11-29 19:00] VITALS: BP_SYST 127
--- NOTE | 2018-11-29 19:00 | NUR ---
END OF SHIFT: PT HAS NO SIGNIFICANT CHANGES IN CONDITION, POSITIONED FOR COMFORT, NEEDS MET, WILL CON'T TO MONITOR AND ASSESS.WILL ENDORSE TO EVENTS MANAGER NURSE.
[2018-11-29 20:00] VITALS: BP_SYST 127
--- NOTE | 2018-11-29 21:24 | NUR ---
MEDICATION GIVEN DUE BUT PATIENT REFUSED,CHARGE NURSE IS INFORMED AND EXPLAINED THE REASONG AND ACTION OF THE MEDICATION .DR KOEHLER INFORMED AND DR PEMBERTON IS SPECIAL WARFARE COMBATANT CREWMAN MESSAGE LEFT WITH THE EXCHANGE,AWAITING RRSPONSE Addendum: 11/29/18 at 2127 by Shree sky cap LAB CALLED AND INFORMED ABOUT PATIENT REFUSING LABS FOR THE SECOND DAY AND TODAY IS THE THRID DAY, WILL INFORM THE PHYSICIAN WHEN CALL BACK
--- NOTE | 2018-11-29 23:30 | NUR ---
PATIENT CLEANED AND NOTED TO BE IN PAIN WHEN MOVED AND GRIMACING. EXPLAINED THAT SHE CAN BE GIVEN MEDICATION FOR PAIN. TOOK THE 2100 HOUR MEDICATION., NORCO DOSE GIVEN NEEDED FOR PAIN
--- NOTE | 2018-11-30 04:35 | NUR ---
REFUSED VITAL SIGNS FOR 0400 HOURS DESPITE EXPLANATION. LABS WAS REFUSED BY THE PATIENT BUT PATIENT HAS A PICC LINE.WILL GET AN ORDER TO DRAW BLOOD FROM THE PICC LINE.
[2018-11-30] MEDS: LORazepam 2 MG/ML VIAL IV PRN (08:27)
[2018-11-30] MEDS: HYDROcodone/ACETAMIN 5-325 MG TAB (NORCO/ VICODIN) PO PRN (08:27)
[2018-11-30 08:32] VITALS: BP_SYST 117
--- NOTE | 2018-11-30 09:00 | NUR ---
SOIL CHECKER: MORNING MEDS GIVEN, PER ORDERED BY Nory, TOLERATED WELL, WILL CON'T TO MONITOR AND ASSESS.
[2018-11-30] MEDS: QUEtiapine FUMARATE 100 MG TABLET PO SCH ×2 (09:49→21:25)
[2018-11-30] MEDS: DULoxetine HCL 30 MG CAPSULE.DR (CYMBALTA) PO SCH ×2 (09:49→21:25)
[2018-11-30] MEDS: DOCUSATE SODIUM 250 MG CAPSULE PO SCH (09:50)
[2018-11-30] MEDS: GABAPENTIN 100 MG CAPSULE PO SCH ×2 (09:50→21:25)
[2018-11-30] MEDS: ENOXAPARIN SODIUM 40 MG/0.4 ML SYRINGE SUBCUT SCH (09:51)
[2018-11-30] MEDS: CEFEPIME 1 GM in D5W 50 ML IV SCH (10:16)
[2018-11-30] MEDS ORDERED: LINEZOLID 600 MG TABLET PO ONE (10:30)
[2018-11-30 11:30] VITALS: BP_SYST 116
[2018-11-30] MEDS: ALBUTEROL SULFATE 0.083% 2.5 MG/3 ML VIAL.NEB INH SCH ×2 (13:22→19:40)
[2018-11-30 15:10] VITALS: BP_SYST 99
--- NOTE | 2018-11-30 18:00 | NUR ---
VISIT: AT BEDSIDE FOR ASSESSMENT OF PT, NEW ORDERS GIVEN, WILL CON'T TO MONITOR, WILL CON'T WITH POC.
--- NOTE | 2018-11-30 18:57 | NUR ---
END OF SHIFT: PT HAS NO SIGNIFICANT CHANGES IN CONDITION, POSITIONED FOR COMFORT, NEEDS MET, WILL CON'T TO MONITOR AND ASSESS.
[2018-11-30 19:00] VITALS: BP_SYST 120
--- NOTE | 2018-11-30 19:25 | NUR ---
patient received with dinner not eaten and day shift rn report patient eat less, will inform Dr Veliz for orders.
[2018-11-30] MEDS: BUDESONIDE 0.5 MG/2 ML AMPUL.NEB IH SCH (19:50)
[2018-11-30 20:00] VITALS: BP_SYST 120
--- NOTE | 2018-11-30 20:05 | NUR ---
DR PEMBERTON CALLED BACK AND INFORMED ABOUT THE PATIENT REFUSING TO EAT DINNER AND POOR FOOD INTAKE, WITH NO FURTHER ORDERS MADE
[2018-11-30] MEDS: LINEZOLID 600 MG TABLET PO SCH (21:25)
[2018-12-01] VITALS (7 sets, daily range): BP systolic 117–138
[2018-12-01] MEDS: ALBUTEROL SULFATE 0.083% 2.5 MG/3 ML VIAL.NEB INH SCH ×3 (01:05→19:01)
--- NOTE | 2018-12-01 03:29 | NUR ---
DIETARY CONSULT ORDERED THE PATIENT HAS POOR IRAL INTAKE AND HAS AN INCISION THAT IS HEALING POORLY. DR PEMBERTON IS AWARE OF THE PATIENT POOR PO INTAKE OF FOOD.
--- NOTE | 2018-12-01 05:54 | NUR ---
PATIENT NOTED TO HAVE VOIDED LESS THAN USUAL, REFUSED TO DRINK MORE WATER AND POOR FOOD INTAKE, ABLE CRISTIANE SWALLOW WELL. DR PEMBERTON IS AWARE, WILL FOLLOW UP IN AM
--- NOTE | 2018-12-01 06:40 | NUR ---
dr díaz paged as the patient noted to have less urine output and needs orders ,awaiting response/
[2018-12-01] MEDS: BUDESONIDE 0.5 MG/2 ML AMPUL.NEB IH SCH ×2 (07:25→19:17)
--- NOTE | 2018-12-01 07:30 | NUR ---
opening note patient is resting in bed, alert and confused, assessment completed, educated director of communications light system and plan of care, patient stated "okay" at this time, assisted patient with bedpan, no signs of distress, no other needs addressed at this time, educated patient on the importance of her increasing her oral intake, patient kept saying "I am not hungry", fall/safety precautions in place, PICC line present on right upper arm.
[2018-12-01] MEDS: ENOXAPARIN SODIUM 40 MG/0.4 ML SYRINGE SUBCUT SCH ×2 (09:00→09:16)
[2018-12-01] MEDS: QUEtiapine FUMARATE 100 MG TABLET PO SCH ×2 (09:14→21:05)
[2018-12-01] MEDS: DULoxetine HCL 30 MG CAPSULE.DR (CYMBALTA) PO SCH ×2 (09:14→21:05)
[2018-12-01] MEDS: DOCUSATE SODIUM 250 MG CAPSULE PO SCH (09:14)
[2018-12-01] MEDS: CEFEPIME 1 GM in D5W 50 ML IV SCH ×3 (09:14→13:25)
[2018-12-01] MEDS: LINEZOLID 600 MG TABLET PO SCH ×2 (09:14→21:05)
[2018-12-01] MEDS: GABAPENTIN 100 MG CAPSULE PO SCH ×2 (09:14→21:05)
[2018-12-01] MEDS: HYDROcodone/ACETAMIN 5-325 MG TAB (NORCO/ VICODIN) PO PRN ×2 (09:59→19:54)
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
--- NOTE | 2018-12-01 11:06 | NUR ---
CONSULTATION PAGED REASON FOR CONSULTATION:POST ORIF LEFT HIP SURGERY FOR FRACTURE WAS CONSULT CALLED?Y PERSON WHO WAS NOTIFIED:MARYANNE CONSULTING PHYSICIAN:ELISABETH VAZQUEZ PIPE FITTER SUPERVISOR SPECIALTY:ORTHO PIPE FITTER SUPERVISOR PHONE NUMBER:[phone] REQUESTING PHYSICIAN:MAO CORNEJO
--- NOTE | 2018-12-01 11:46 | NUR ---
rounds patient is resting in bed, no signs of distress, Dr Keen came earlier to see patient and I informed him that the patient refused to let me to connect her to the IV antibiotic or else she will pull her PICC line, no signs of distress, fall/safety precautions in place.
--- NOTE | 2018-12-01 12:19 | NUR ---
Dietitian Recommendations *Recommend Regular diet w/ Ensure BID and Zain BID. ONS will provide additional 860 kcal and 45 gm protein daily. *Recommend Megace to stimulate the appetite. *Encourage pt to increase PO intake. *If pt continues w/ negligible PO intake, consider NGT to meet calorie and protein needs. Please see Nutritional Assessment for details. ELIZABETH, RD
--- NOTE | 2018-12-01 13:25 | NUR ---
antibiotic patient agreed to let me connect her to the IV antibiotic, assisted patient to sitting on the edge of the bed and back to supine position, no other needs at this, fall/safety precautions in place, patient ate one jello and drank one orange juice. Dr Mcleod called me to tell me that he will come to see the patient later today.
--- NOTE | 2018-12-01 15:07 | NUR ---
patient is resting in bed eyes closed breathing easy and nonlabored, no needs addressed at this time, fall/safety precautions in place.
--- NOTE | 2018-12-01 16:05 | NUR ---
Dr Mcleod came to see patient, he said that we do not need to put Betadine on the incision, just cover the redness with 4x4 gauzes dry, will put order for x-ray.
--- NOTE | 2018-12-01 17:00 | NUR ---
covered incision site with 4x4 gauzes per Dr Mcleod recommendation, no other needs at this time, patient is resting in bed, no signs of distress, no needs addressed at this time, fall/safety precautions in place.
--- NOTE | 2018-12-01 17:52 | NUR ---
PATIENT REFUSED X-RAY INFORMED PATIENT ON THE IMPORTANCE OF THIS X-RAY, PATIENT USED FOUL LANGUAGE AT ME AND THE VALUE ANALYST AND YELLED THAT SHE DID NOT WANT IT, I INFORMED THE VALUE ANALYST TO COME BACK LATER.
--- NOTE | 2018-12-01 18:52 | NUR ---
closing note patient is resting in bed, patient refusing x-ray at this time, will endorse report to noc shift nurse to ask the patient later again if she will be cooperative with the x-ray, informed her on the importance of getting the x-ray done, patient has been uncooperative with getting the lovenox and with eating her meals, patient does drink water with assist, patient refuses PT and assist to sit on the edge of the bed.
--- NOTE | 2018-12-01 20:04 | NUR ---
PATIENT RECIEVED AWAKE, AND WITH COMPLAINTS OF PAIN TO THE LEFT HIP RADIATING TO THE LEFT LEG AND PATI, NORCO DOSE GIVEN AND EXPLAINED TOTHE PATIENT THE NEED FOR THE XRAY OF THE HIP. AND AGREED TO HAVE THE XRAY. XRAY DEPARTMENT INFORMED TO COME AND TAKE THE PATIENT OT THE XRAY DEPARTMENT
--- NOTE | 2018-12-01 20:30 | NUR ---
XRAY OF THE LEFT HIP DONE BUT LIMITED THE PATIENT CANNOT MOVE THE LEG FROM THE KNEE.TOLERATED THE PROCEDURE
[2018-12-02] MEDS: ALBUTEROL SULFATE 0.083% 2.5 MG/3 ML VIAL.NEB INH SCH ×4 (00:50→19:00)
[2018-12-02 01:01] VITALS: BP_SYST 132
--- NOTE | 2018-12-02 04:00 | NUR ---
PATIENT HAS LARGE LOOSE STOOL AND CLEANED NOTED AN OPEN WOUNNNNND TO THE LEFT INNER BUTTOKS, CLEANED AND KEPT DRY, AND DRESSING APPLIED
[2018-12-02] MEDS: BUDESONIDE 0.5 MG/2 ML AMPUL.NEB IH SCH ×2 (07:00→19:00)
--- NOTE | 2018-12-02 07:27 | NUR ---
Opening Note received bedside SBAR report from material handler 1st shift RN, patient resting in bed, respirations even and unlabored on room air, no acute distress noted, educated patient on use of call light and asked to call for assistance, call light in reach, bed in low and locked position, bed alarm on.
--- NOTE | 2018-12-02 07:46 | NUR ---
WOUND CARE CONSULT FOR THE EXAMINATION AND TREATMENT OF THE WOUND NOTED TO THE LEFT INNER BUTTOCKS ,CHSRGE NURSE IS INFORMED ABOUT THE WOUND
[2018-12-02 08:00] VITALS: BP_SYST 127
--- NOTE | 2018-12-02 08:00 | NUR ---
Physician Rounds Dr. Mcleod at bedside examining patient, per Dr. Mcleod patient is cleared for discharge.
--- NOTE | 2018-12-02 09:55 | NUR ---
RN Rounds patient sitting up in bed eating breakfast, patient tolerating well, patient denies any pain or nausea, no acute distress noted.
[2018-12-02] MEDS: DOCUSATE SODIUM 250 MG CAPSULE PO SCH (10:12)
[2018-12-02] MEDS: QUEtiapine FUMARATE 100 MG TABLET PO SCH ×2 (10:12→20:33)
[2018-12-02] MEDS: GABAPENTIN 100 MG CAPSULE PO SCH ×2 (10:12→20:32)
[2018-12-02] MEDS: DULoxetine HCL 30 MG CAPSULE.DR (CYMBALTA) PO SCH ×2 (10:12→20:33)
[2018-12-02] MEDS: LINEZOLID 600 MG TABLET PO SCH ×2 (10:12→20:32)
[2018-12-02] MEDS: ENOXAPARIN SODIUM 40 MG/0.4 ML SYRINGE SUBCUT SCH (10:13)
[2018-12-02] MEDS: CEFEPIME 1 GM in D5W 50 ML IV SCH (10:25)
[2018-12-02 11:22] VITALS: BP_SYST 136
--- NOTE | 2018-12-02 11:45 | NUR ---
Incontinent patient incontinent of bowel, patient cleaned and repositioned, tolerated well.
[2018-12-02] MEDS: HYDROcodone/ACETAMIN 5-325 MG TAB (NORCO/ VICODIN) PO PRN ×2 (11:47→18:39)
--- NOTE | 2018-12-02 12:43 | NUR ---
P.T. NOTES AFTER MULTIPLE ATTEMPTS PATIENT CONTINUES TO REFUSE P.T., STATES FEELING TIRED AND NOT UP FOR IT.
--- NOTE | 2018-12-02 13:20 | NUR ---
RN Rounds patient resting in bed, patient reports pain is controlled at this time, no acute distress noted.
[2018-12-02 15:25] VITALS: BP_SYST 100
--- NOTE | 2018-12-02 15:42 | NUR ---
WOUND EVALUATION: Wound Consult received from Dr. Veliz. Thank you, Dr. Veliz, for the consult. Patient received in a Quakake Bed with an IsoFlex MARVEL mattress with low air loss therapy initiated, sleeping, drowsy and confused when awoke (patient got upset and was yelling and using profane language). Patient is unable to turn in bed independently. Kan Score is a 14. Past Medical History: Psychiatric Disorder, Spinal Stenosis, Coronary Artery Disease, Osteoarthritis, Polyneuropathy, Hypertension, Schizophrenia and Dementia. Recent Labs: WBC 9.0, RBC 3.23, hemoglobin 9.7, hematocrit 29.4, glucose 113, calcium 8.2, PTT 25.2. Microbiology: Blood culture results 2 negative. MRSA screen results negative. Intrinsic factors that delay wound healing: Anemia. Extrinsic factors that delay wound healing: Decreased mobility. Wound Assessment: 1. Right Buttock: Shearing injury over scar tissue from a wound of prior unknown etiology. Site has 100% red tissue. No odor, no drainage. Ann-site intact. Surrounding tissue has dark discolored tissue and scar tissue. Measures 3.0 cm x 3.0 cm. 2. Left Buttock: IAD with MASD. Area of broken skin where skin color underneath open area is of normal colored skin for patient. No odor, no drainage. Ann-site intact. Surrounding tissue has dark discolored tissue and scar tissue. Measures 0.7 cm x 1.0 cm. Recommend: Cleanse sites with normal saline. Apply Calmoseptine cream to sites. Cover with Sacral foam dressing. Perform site care daily, and as needed for dressing soiling or dislodgement. Also recommend: Encourage and assist patient as needed with repositioning [id number]-tt-onwd only every 2 hours with pillow support and off-load pressure areas with pillows for pressure re-distribution. Offload, elevate and float bilateral heels with pillows. Perform skin care and monitor skin integrity Q shift. Maintain patient on low air loss therapy.
--- NOTE | 2018-12-02 15:50 | NUR ---
Wound Care patient incontinent of stool, patient cleaned and linen changed, educated patient on purpose and procedure for wound care, patient verbalized understanding, wound care completed, patient tolerated well, no acute distress noted, patient assisted to reposition in bed, see MST shift assessment for wound care.
[2018-12-02] MEDS ORDERED: MENTHOL/ZINC OXIDE 113 GM OINT. TP PRN (17:00)
--- NOTE | 2018-12-02 17:40 | NUR ---
RN Rounds patient sleeping in bed, respirations even and unlabored on room air, no acute distress noted.
--- NOTE | 2018-12-02 19:30 | NUR ---
INITIAL NOTES RECEIVED HANDOFF REPORT FROM OFFGOING NURSE AT THE BEDSIDE. PATIENT IS AAOX1, RESTING COMFORTABLY IN BED. ABLE TO STATE NAME AND AGE, AND ABLE TO LOOK AROUND THE ROOM FOR VISUAL CUES TO LET HERSELF KNOW SHE IS IN THE HOSPITAL, BUT DOES NOT KNOW THE DATE, THE EVENTS OF THIS STAY, AND IS FORGETFUL THAT SHE IS IN THE HOSPITAL. NO SOB, NO ACUTE DISTRESS, NO COMPLAINTS OF PAIN. FLAVIA PICC LINE SITE INTACT, SALINE LOCKED. BED IS LOCKED, IN THE LOWEST POSITION, 2X SIDE RAILS UP, BED ALARM IS ON. CALL LIGHT IS WITHIN REACH. ENCOURAGED PATIENT TO CALL FOR ASSISTANCE. WILL CONTINUE WITH PLAN OF CARE.
--- NOTE | 2018-12-02 19:30 | NUR ---
Closing Note bedside SBAR report given to receiving RN, patient resting in bed, no acute distress noted, patient reports pain is controlled at this time, educated patient on use of call light and asked to call for assistance, patient verbalized understanding, call light in reach, bed in low and locked position, bed alarm on, care endorsed to restaurant shift supervisor RN.
[2018-12-02 20:00] VITALS: BP_SYST 109
--- NOTE | 2018-12-02 21:00 | NUR ---
PATIENT IS CONFUSED. DOES NOT KNOW WHERE SHE IS. REORIENTED PATIENT TO THE HOSPITAL STAY. PATIENT STARTED CRYING, SAYING SHE DOESN'T KNOW WHATS GOING ON. PROVIDED COMFORT MEASURES FOR THE PATIENT. PATIENT NOW HAS POSITIVE AFFECT. 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 ENCOURAGED PATIENT TO TAKE A FEW MORE BITES OF FOOD, SINCE PATIENT DID NOT EAT MUCH OF HER DINNER. PATIENT ATE HALF A BROWNIE. STATED SHE DOES NOT WANT ANYMORE. HOWEVER, PATIENT DRANK ALL OF HER KIM SUPPLEMENT. ENCOURAGED PATIENT TO CALL FOR ASSISTANCE. WILL CONTINUE TO MONITOR.
--- NOTE | 2018-12-02 23:10 | NUR ---
PATIENT HAD AN EPISODE OF BOWEL AND URINARY INCONTINENCE. PROVIDED INCONTINENCE CARE NEEDED. PATIENT IS NOW CLEAN AND DRY, RESTING COMFORTABLY IN BED. BED IS LOCKED, PLACED IN THE LOWEST POSITION, 2X SIDE RAILS UP, BED ALARM IS ON. CALL LIGHT IS WITHIN REACH. ENCOURAGED PATIENT TO CALL FOR ASSISTANCE.
--- NOTE | 2018-12-03 | NUR ---
Patient resting comfortably in bed, eyes closed. Breathing even and unlabored. Noted with visible chest rise and fall. No acute distress noted. Stable.
[2018-12-03] MEDS: ALBUTEROL SULFATE 0.083% 2.5 MG/3 ML VIAL.NEB INH SCH ×4 (00:50→20:07)
[2018-12-03 01:33] VITALS: BP_SYST 116
--- NOTE | 2018-12-03 01:42 | NUR ---
Patient resting comfortably in bed. No SOB, no acute distress, no signs of pain or discomfort noted. FLAVIA picc line intact, saline locked. Bed is locked, in the lowest position, 2x side rails up, bed alarm is on. Call light is within reach.
--- NOTE | 2018-12-03 04:00 | NUR ---
Patient resting in bed with eyes closed. Visible chest rise and fall noted. NO SOB, no acute distress. No signs of pain. Stable. Will continue to monitor closely.
--- NOTE | 2018-12-03 05:41 | NUR ---
Patient is resting comfortably in bed, eyes closed. Easily arousable by touch. Breathing even and unlabored, visible chest rise and fall noted. No SOB, no acute distress, no complaints of pain at this time. Patient is clean and dry, no signs of bowel or urinary incontinence at this time. Patient states that she does not want to use the bedpan at this time. Bed is locked, in the lowest position, 2x side rails up, bed alarm is on. Call light is within reach. Encouraged patient to call for assistance.
--- NOTE | 2018-12-03 06:23 | NUR ---
Closing Notes Patient is resting comfortably in bed, eyes closed. Breathing even and unlabored with visible chest rise and fall noted. No SOB, no acute distress, no signs of pain or discomfort at this time. PICC line site intact, dressing clean and dry, saline locked. Bed is locked, in the lowest position, 2x side rails up, bed alarm is on. Call light is within reach. Fall and safety precautions maintained. All needs have been met during this shift. Will endorse care to oncoming dayshift nurse.
[2018-12-03] MEDS: BUDESONIDE 0.5 MG/2 ML AMPUL.NEB IH SCH ×2 (07:00→19:00)
--- NOTE | 2018-12-03 08:00 | NUR ---
Note Pt sleeping at this time, wants RN to come in a little while. No SOB/resp distress or pain/discomfort noted at this time. FLAVIA PICC intact and patent at this time. Call light within reach.
[2018-12-03] MEDS: QUEtiapine FUMARATE 100 MG TABLET PO SCH ×2 (08:52→20:30)
[2018-12-03] MEDS: LINEZOLID 600 MG TABLET PO SCH (08:53)
[2018-12-03] MEDS: GABAPENTIN 100 MG CAPSULE PO SCH ×2 (08:53→20:30)
[2018-12-03] MEDS: DULoxetine HCL 30 MG CAPSULE.DR (CYMBALTA) PO SCH ×2 (08:53→20:30)
[2018-12-03] MEDS: ENOXAPARIN SODIUM 40 MG/0.4 ML SYRINGE SUBCUT SCH (08:57)
[2018-12-03] MEDS: DOCUSATE SODIUM 250 MG CAPSULE PO SCH (08:57)
[2018-12-03] MEDS: CEFEPIME 1 GM in D5W 50 ML IV SCH (09:05)
[2018-12-03] MEDS: HYDROcodone/ACETAMIN 5-325 MG TAB (NORCO/ VICODIN) PO PRN (09:20)
[2018-12-03 09:59] VITALS: BP_SYST 118
--- NOTE | 2018-12-03 10:00 | NUR ---
Note [facility] state tested nursing assistant [employer] and student Isaías went in at 09am to give pt her PO medications and take vital signs. Pt cooperated with them, took all her medications and allowed them to take her vital signs. Pt took 1 tab [place] and fell asleep at this time. No needs noted at this time. Call light within reach. Pt next to nurses' station for close observation for needs and care.
--- NOTE | 2018-12-03 11:15 | NUR ---
Note Dr Keen on the floor to assess pt at this time. No new orders written.
[2018-12-03 11:23] VITALS: BP_SYST 93
--- NOTE | 2018-12-03 11:40 | NUR ---
Note Pt resting in bed. No needs noted at this time.
--- NOTE | 2018-12-03 11:41 | NUR ---
P.T. NOTES PATIENT REFUSED TO WORK W/ P.T., STATES FEELING TIRED AND WOULD LIKE TO GET SOME REST/SLEEP.
--- NOTE | 2018-12-03 14:20 | NUR ---
Note Pt was turned side to side with RN and SCREED PERSON for hygiene care or incontinence of stool and urine. Left hip dressing CDI all shift. Pt's coccyx dressing was applied new, after area cleaned and Z-guard applied to side. Pt turned on to her right and pt went back to sleep. Pt was given new fresh gown and lights were turned off. Call light within reach. FLAVIA PICC site benign and intact at this time.
--- NOTE | 2018-12-03 14:58 | NUR ---
PHYSICAL THERAPY CO-SIGN The Physical Therapy Progress Notes documented by Endoscopy Technican have been reviewed. Reviewed/Co-Signed by: Yandel Richter Documentation Done by:BERENICE HENRY Addendum: 12/03/18 at 1459 by Yandel Richter PT Amended: Links added.
[2018-12-03 15:22] VITALS: BP_SYST 118
--- NOTE | 2018-12-03 17:20 | NUR ---
Note Pt asleep at this time. No SOB/resp distress or left hip/leg pain/discomfort noted at this time. Pt checked on q1' and PRN all shift for needs and care. FLAVIA PICC intact and patent-flushed ports during the shift and capped. Pt's left hip dressing CDI and coccyx dressing intact at this time. No needs noted at this time. Call light within reach.
--- NOTE | 2018-12-03 19:30 | NUR ---
Initial Notes Received handoff report from offgoing nurse at the bedside. Patient is AAOx1, positive affect, resting comfortably in bed. No SOB, no acute distress, no complaints of pain at this time. FLAVIA PICC line site intact, dressing clean and dry, saline locked. Bed is locked, in the lowest position, 2x side rails up, bed alarm is on. Call light is within reach. Encouraged patient to call for assistance. will continue with plan of care.
[2018-12-03 20:00] VITALS: BP_SYST 112
--- NOTE | 2018-12-03 21:00 | NUR ---
incontinence care provided to the patient. Patient is now clean and dry, resting comfortably in bed. call light within reach. encouraged patient to call for assistance.
--- NOTE | 2018-12-03 22:19 | NUR ---
Dr Guerrero at the bedside to see the patient. All questions and concerns have been answered by Dr Guerrero
--- NOTE | 2018-12-03 22:30 | NUR ---
Patient resting comfortably in bed, eyes closed. Breathing even and unlabored with visible chest rise and fall noted. NO SOB, no acute distress, no signs of pain or facial grimacing noted. BEd is locked, in the lowest position, 2x side rails up, bed alarm is on. Call light is within reach.
--- NOTE | 2018-12-04 00:07 | NUR ---
PATIENT REFUSES CARE AT THIS TIME. STATING "LEAVE ME ALONE." PATIENT IS ALSO COMBATIVE. PROVIDED COMFORT MEASURES FOR THE PATIENT. WILL CONTINUE TO MONITOR CLOSELY.
--- NOTE | 2018-12-04 00:30 | NUR ---
Patient had an episode of bowel and urinary incontinence. Incontinence care provided to the patient. All linen, gown, sheets, have been changed as needed. Patient is now clean and dry, resting comfortably in bed. No SOB, no acute distress, no complaints of pain or discomfort at this time. Bed is locked, in the lowest position, 2x side rails up, bed alarm is on. Call light within reach. Encouraged patient to call for assistance.
[2018-12-04 00:44] VITALS: BP_SYST 98
[2018-12-04] MEDS: ALBUTEROL SULFATE 0.083% 2.5 MG/3 ML VIAL.NEB INH SCH ×4 (01:00→19:58)
--- NOTE | 2018-12-04 02:10 | NUR ---
Patient resting comfortably in bed, eyes are closed. NO SOB, no acute distress, no complaints of pain at this time. FLAVIA PICC line site intact, dressing clean and dry.Bed is locked, in the lowest position, 2x. side rails up, bed alarm is on. Call light within reach. Stable.
--- NOTE | 2018-12-04 04:37 | NUR ---
Patient resting comfortably in bed, eyes closed. No signs of pain or facial grimacing at this time. Breathing even and unlabored with visible chest rise and fall noted. Call light within reach.
--- NOTE | 2018-12-04 06:34 | NUR ---
Closing notes Patient is resting comfortably in bed, eyes are closed. NO SOB, no acute distress, no signs of pain or facial grimacing. Noted with visible chest rise and fall. IV site intact, dressing clean and dry, saline locked. Bed is locked, in the lowest position, 2x side rails up, bed alarm is on. Call light is within reach. Fall and safety precautions maintained. All needs have been met during this shift. Will endorse care to oncoming dayshift nurse.
[2018-12-04] MEDS: BUDESONIDE 0.5 MG/2 ML AMPUL.NEB IH SCH ×2 (07:00→19:58)
[2018-12-04 07:45] VITALS: BP_SYST 121; BP_SYST 133
[2018-12-04 08:05] VITALS: BP_SYST 133
--- NOTE | 2018-12-04 08:10 | NUR ---
REC PT, AWAKE AND ALERT, PLEASANTLY CONFUSED AND LABILE IN MOOD. PT RANGED FROM HAPPY AND SMILING THANKING RN, TO CRYING SOFTLY WHEN SHE FELT CONFUSED ABOUT WHERE SHE IS CURRENTLY (IN HOSPITAL). RN PROVIDED THERAPEUTIC COMMUNICATION TO PT, WHO DOES REORIENT AND CALMS, BUT REORIENTATION IS FREQUENT Q-EVERY INTERACTION. PICC LINE WDL C/D/I FLUSHED AND PATENT. NO S/S BLEEDING, DRESSING TO L ORIF INTACT, NO DRAINAGE NOTES TO NEW DRESSING TODAY. VSS, AFEBRILE, IN NO ACUTE DISTRESS. DENIES PAIN AT REST, NO CHEST PAIN. WILL CONT TO MONITOR.
[2018-12-04] MEDS ORDERED: CEFEPIME 1 GM in D5W 50 ML IV SCH (09:00)
[2018-12-04] MEDS: DULoxetine HCL 30 MG CAPSULE.DR (CYMBALTA) PO SCH ×2 (09:32→19:52)
[2018-12-04] MEDS: GABAPENTIN 100 MG CAPSULE PO SCH ×2 (09:32→19:52)
[2018-12-04] MEDS: QUEtiapine FUMARATE 100 MG TABLET PO SCH ×2 (09:32→19:52)
[2018-12-04] MEDS: DOCUSATE SODIUM 250 MG CAPSULE PO SCH (09:32)
[2018-12-04] MEDS: ENOXAPARIN SODIUM 40 MG/0.4 ML SYRINGE SUBCUT SCH (09:36)
--- NOTE | 2018-12-04 12:22 | NUR ---
PT SITTING UP IN HER BED, EATING LUNCH AND WATCHING TV IN NO DISTRESS. CHANGED PRN THIS AM, DRY NOW. PT TURNED Q2H FOR SKIN SAFETY WELL. PT IV ABX INFUSED THIS AM, YURIDIA WDL NO REACTION. FLUSHED PICC LINE DRESSING C/D/I. SURGICAL INCISION WITH DRESSING CHANGED THIS AM REMAINS C/D/I, NO BLEEDING. NO CHANGES THUS FAR. PT SAT UP TO DANGLE WITH PHYSICAL THERAPIST THIS AM BUT EXPRESSED FEAR AND LABILE MOOD WHEN WORKING TO SIT UP AT BEDSIDE OR STAND WITH FWW, THUS LIMITED THERAPY. WILL CONT TO MONITOR. NO CHEST PAIN, VSS, AFEBRILE, NO N/V/D. PT CALM AND COOPERATIVE WITH POC NOW.
[2018-12-04 12:51] VITALS: BP_SYST 115
--- NOTE | 2018-12-04 16:22 | NUR ---
Nutrition F/U RD reviewed pt's current EMR record including diet Hx, physician notes, nursing notes, pertinent labs/meds/procedures, care trends, and care activity. Current Diet Order: Regular diet, Ensure Enlive BID, Zain BID x3 dayd Subjective Info: Pt seen resting in bed, pleasantly confused, but able to carry simple conversation. Pt reported appetite for snack, as she did not eat much today per RN report. Pt was able to drink some Ensure at one meal today per RN. Pt stated she is very itchy, and feels this contributes to her lack of appetite. RD offered afternoon snacks 2 hours prior to dinner meal -- pt appreciated fruited yogurt and chocolate pudding. FNS staff provided. Pt is not yet meeting optimal nutritional needs. Current % PO 26% average x7 meals -- continues poor NEW Estimated Energy Expenditure (kcals/day) 3658-4536 kcal/day (30-35 kcal/kg ABW for geriatric maintenance/wound healing) Estimated Protein Required (g/day) 66-99 gm/day (1-1.5 gm/kg ABW for wound healing) NEW Estimated Fluid Required (l/day) 1.7-2L/day (1 ml/kcal/day for wound healing) Problem/Etiology/Signs/Symptoms Increased nutrient needs r/t metabolic demands AEB estimated calorie and protein needs for wound healing. *ongoing Inadequate nutrient intake r/t altered mental status AEB poor concentration , refusal of meals and PO intake meeting <75% of estimated needs. *ongoing Expected Outcomes/Goals Monitor appetite and PO intake w/ goal of pt meeting at least 75% of estimated nutritional needs, labs trending WNL, normal GI function, skin integrity/wt maintenance. Dietitian Recommendations * Recommend regular diet w/ Ensure TID and Zain BID (ONS will provide an additional 1050 kcal and 65 gm protein daily. * Consider appetite stimulate * Encourage pt to increase PO intake. *If pt continues w/ negligible PO intake, consider NGT placement and EN support to meet nutritional needs within 2 weeks Follow Up High Risk: F/U in 2-3 days
--- NOTE | 2018-12-04 16:28 | NUR ---
Dietitian Recommendations * Recommend regular diet w/ Ensure TID and Zain BID (ONS will provide an additional 1050 kcal and 65 gm protein daily. * Consider appetite stimulate * Encourage pt to increase PO intake. *If pt continues w/ negligible PO intake, consider NGT placement and EN support to meet nutritional needs within 2 weeks LP, RD Please refer to Nutrition F/U for details.
[2018-12-04 18:02] VITALS: BP_SYST 128
--- NOTE | 2018-12-04 18:55 | NUR ---
pt sitting comfortably in bed in no distress, changed prn q2h for skin safety and mepilex to coccyx. left hip dressing c/d/i, wdl. picc ;ine flushed wdl after abx admin. pt with no falls, no episodes of agitation today. pt calm and conversive this afternoon. nss, afebrile. no chest pain. will endorse plan to noc rn.
[2018-12-04 20:00] VITALS: BP_SYST 115
--- NOTE | 2018-12-04 20:00 | NUR ---
[id number] pt in bed v/s and assessment done same stable ,no distress noted at this time ,pt remains confused and screaming peridically meds given as ordered.pm care given made comfortable.
--- NOTE | 2018-12-04 20:00 | NUR ---
received pt in bed v/s and assessment done same stable ,pm care given pt repositioned made comfortable
--- NOTE | 2018-12-05 | NUR ---
pt in bed in no distress at this time repositioned made tomy
[2018-12-05 01:31] VITALS: BP_SYST 127
[2018-12-05 01:51] VITALS: BP_SYST 107
--- NOTE | 2018-12-05 04:00 | NUR ---
am care given made comfortable
[2018-12-05] MEDS: ALBUTEROL SULFATE 0.083% 2.5 MG/3 ML VIAL.NEB INH SCH ×4 (07:26→20:11)
[2018-12-05] MEDS: BUDESONIDE 0.5 MG/2 ML AMPUL.NEB IH SCH ×2 (07:27→20:11)
[2018-12-05 08:08] VITALS: BP_SYST 139
[2018-12-05] MEDS: GABAPENTIN 100 MG CAPSULE PO SCH ×2 (08:53→21:17)
[2018-12-05] MEDS: QUEtiapine FUMARATE 100 MG TABLET PO SCH ×2 (08:53→21:17)
[2018-12-05] MEDS: DULoxetine HCL 30 MG CAPSULE.DR (CYMBALTA) PO SCH ×2 (08:53→21:17)
[2018-12-05] MEDS: DOCUSATE SODIUM 250 MG CAPSULE PO SCH (08:53)
[2018-12-05] MEDS: ENOXAPARIN SODIUM 40 MG/0.4 ML SYRINGE SUBCUT SCH (08:55)
--- NOTE | 2018-12-05 08:56 | NUR ---
Patient resting in bed with no complaint of pain. Scheduled medications given per order. Patient stable.
[2018-12-05 12:25] VITALS: BP_SYST 120
--- NOTE | 2018-12-05 14:54 | NUR ---
Patient asleep with no distress noted.
[2018-12-05 15:09] VITALS: BP_SYST 143
--- NOTE | 2018-12-05 16:56 | NUR ---
DC Planning: Per Director, Shraddha and COLIN Giron: plan discharging pt to [facility] . COLIN confirmed with Ahsan at [facility] who accepted the pt to room 39 A until [facility] has bed available for the pt. Bree is to call conservator for the transfer approval.
--- NOTE | 2018-12-05 16:58 | NUR ---
DC PLANNING: CM CONTACTED PATIENT'S CONSERVATOR (BROOKE GARIBAY) @ AND DISCUSSED DC PLAN TO [facility]. PER CONSERVATOR, SHE WILL HAVE TO RESEARCH ABOUT NEW [facility] BEFORE APPROVING THE DISCHARGE AND ADVICE TO CALL BACK IN 10 MINUTES FOR FOLLOW UP. CM ATTEMPTED TO CONTACT CONSERVATOR AGAIN AFTER 10 MINUTES. HOWEVER, WAS NOT AVAILABLE. CM LEFT A VOICE MESSAGE. AWAITING FOR CALL BACK FOR APPROVAL FOR DC TO [facility]. CM/DCP TO FOLLOW UP NEEDED.
--- NOTE | 2018-12-05 18:03 | NUR ---
PHYSICAL THERAPY CO-SIGN The Physical Therapy Progress Notes documented by Automobile Lights Assembler have been reviewed. Reviewed/Co-Signed by: Renetta Garcia PT Documentation Done by:ARTURO ERNANDEZ [employer] POC REVIEWED W/ RECRUITING INTERNSHIP; PROGRESS YURIDIA. Addendum: 12/06/18 at 0959 by Renetta Garcia PT Amended: Links added.
[2018-12-05 20:00] VITALS: BP_SYST 132
--- NOTE | 2018-12-05 22:15 | NUR ---
RN ASSUMED CARE OF PATIENT. PATIENT NOTED AWAKE AND ALERT, PLEASANTLY AND COOPERATIVE. PATIENT HAS A BRIGHT AFFECT. THOUGHTS ARE CLEAR/LOGICAL/COHERENT. BEHAVIOR IS APPROPRIATE AND THOUGHTS ARE CONGRUENT. NO REORIENTATIONS NEEDED AT THIS TIME. PICC LINE WDL C/D/I FLUSHED AND PATENT. DRESSING TO L ORIF INTACT, NO DRAINAGE NOTES TO NEW DRESSING TODAY. VSS, AFEBRILE, IN NO ACUTE DISTRESS. DENIES PAIN AT REST, NO CHEST PAIN. WILL CONT TO MONITOR.
--- NOTE | 2018-12-06 | NUR ---
Patient resting comfortably in bed. Eyes closed chest rising. No s/s distress noted. Will continue to monitor for safety.
[2018-12-06 00:34] VITALS: BP_SYST 114
[2018-12-06] MEDS: ALBUTEROL SULFATE 0.083% 2.5 MG/3 ML VIAL.NEB INH SCH ×2 (01:36→07:49)
[2018-12-06] MEDS: BUDESONIDE 0.5 MG/2 ML AMPUL.NEB IH SCH (07:49)
[2018-12-06 08:00] VITALS: BP_SYST 135
[2018-12-06] MEDS: GABAPENTIN 100 MG CAPSULE PO SCH (08:56)
[2018-12-06] MEDS: DULoxetine HCL 30 MG CAPSULE.DR (CYMBALTA) PO SCH (08:56)
[2018-12-06] MEDS: QUEtiapine FUMARATE 100 MG TABLET PO SCH (08:57)
[2018-12-06] MEDS: DOCUSATE SODIUM 250 MG CAPSULE PO SCH (08:57)
[2018-12-06] MEDS: HYDROcodone/ACETAMIN 5-325 MG TAB (NORCO/ VICODIN) PO PRN ×2 (08:57→13:14)
[2018-12-06] MEDS: ENOXAPARIN SODIUM 40 MG/0.4 ML SYRINGE SUBCUT SCH (08:58)
--- NOTE | 2018-12-06 09:00 | NUR ---
norco po given for pain. due medication given. made comfortable.
--- NOTE | 2018-12-06 09:05 | NUR ---
refused medication at this time.
[2018-12-06 11:20] VITALS: BP_SYST 127
--- NOTE | 2018-12-06 13:03 | NUR ---
DC PLANNING: CM ATTEMPTED TO CONTACT PATIENT'S CONSERVATOR (BROOKE ANDRADE) @ TO FOLLOW UP ON APPROVAL FOR PATIENT TO BE DISCHARGE TO [facility]. HOWEVER, WAS UNAVAILABLE. CM CALLED THE ANSWERING SERVICE @ AND PAGED A CONSERVATOR. RECEIVED A CALL FROM PATIENT'S CONSERVATOR (BROOKE ANDRADE), WHO STATED SHE CALLED [facility] YESTERDAY AND THE TANK PUMPER PANELBOARD DOES NOT KNOW ABOUT THE PATIENT GOING TO THE FACILITY. PER BROOKE, SHE WON'T APPROVE THE DISCHARGE TO [facility] AT THIS TIME SHE NEEDS TO DO RESEARCH ABOUT THE FACILITY PRIOR TO CHECK IF [facility] IS A GOOD FIT FOR THE PATIENT BECAUSE OF HER NEEDS AND BEHAVIOR. STATED TO FOLLOW UP WITH HER ON SATURDAY MORNING. CM ALSO DISCUSSED WITH HER IF PATIENT CAN RETURN TO [facility]. PER BROOKE, SHE WOULD LIKE TO SPEAK WITH THE TANK PUMPER PANELBOARD AT [facility] FIRST. CM PROVIDED ISIDORO (TANK PUMPER PANELBOARD AT [place] ) TO THE CONSERVATOR. RECEIVED A CALL FROM PATIENT'S CONSERVATOR (BROOKE ANDRADE), WHO STATED SHE HAD SPOKE WITH ISIDORO REGARDING DC TO [facility]. THAT [facility] CAN MANAGE THE PATIENT'S NEEDS. BROOKE HAS GIVEN APPROVAL FOR PATIENT TO BE DISCHARGE TO [facility] TODAY.
[2018-12-06] MEDS: LORazepam 2 MG/ML VIAL IV PRN (13:13)
--- NOTE | 2018-12-06 13:15 | NUR ---
atuvan 1 mg iv given. and norco tablet given as ordered. made comfortable.
--- NOTE | 2018-12-06 14:23 | NUR ---
DC PLANNING: CM SPOKE WITH THUY (MORTGAGE COUNSELOR @ [facility]) @ , WHO CONFIRM WILL BE ACCEPTING PATIENT AND ROOM NUMBER IS 39A. BLS TRANSPORTATION HAS BEEN SETUP WITH [facility] @ AND MOLD HOLDER TIME IS AT 5:30PM. PATIENT'S NURSE MADE AWARE.
--- NOTE | 2018-12-06 15:00 | NUR ---
PHYSICAL THERAPY CO-SIGN The Physical Therapy Progress Notes documented by [employer] have been reviewed. Reviewed/Co-Signed by: Renetta Garcia PT Documentation Done by:EBRENICE HENRY CRYSTAL SYRUP MAKER POC REVIEWED W/ PLUMBERS AND TOP HELPERS; EXPLAINED BENEFITS OF THERAPY. 12/05/18 PSYCH CONSULT Addendum: 12/06/18 at 1501 by Renetta Garcia PT Amended: Links added.
[2018-12-06 15:21] VITALS: BP_SYST 124
--- NOTE | 2018-12-06 17:00 | NUR ---
SBAR REPORT GIVEN TO JOSHUA HILTON AT [facility] AND GOING TO ROOM 39-A.
[2018-12-06 17:01] VITALS: BP_SYST 129
--- NOTE | 2018-12-06 17:39 | NUR ---
PATIENT LEFT IN STABLE CONDITION AND EQUINE MANAGER BY [facility] GOING TO [facility] ROOM 39-A [facility] ID BAND REMOVED. PLAIN ID BAND PLACED.
== END 2018-12-06 17:40 | DRG 871 ==
LOC: OBSVTOIN 11-28 00:04 → INTOOBSV 11-28 00:04 → SMU 11-28 00:04 → OBSVTOIN 11-29 13:34
PROVIDERS: ADMIT Internal Medicine; ATTEND Family Medicine
PROC: 02HV33Z Insertion of Infusion Device into Superior Vena Cava, Percutaneous Approach (ICD-10-PCS; principal; 2018-11-29)
PROC: B548ZZA Ultrasonography of Superior Vena Cava, Guidance (ICD-10-PCS; 2018-11-29)
DX: A41.01 Sepsis due to Methicillin susceptible Staphylococcus aureus (principal); J18.9 Pneumonia, unspecified organism; F20.9 Schizophrenia, unspecified; G62.9 Polyneuropathy, unspecified; F03.90 Unspecified dementia, unspecified severity, without behavioral disturbance, psychotic disturbance, mood disturbance, and anxiety; I10 Essential (primary) hypertension; M48.00 Spinal stenosis, site unspecified; I25.10 Atherosclerotic heart disease of native coronary artery without angina pectoris; J44.9 Chronic obstructive pulmonary disease, unspecified; M19.90 Unspecified osteoarthritis, unspecified site; Z78.1 Physical restraint status; Z87.891 Personal history of nicotine dependence; Z87.81 Personal history of (healed) traumatic fracture
CPT/HCPCS: 36415; 71045; 73502; 80048; 85025; 85610-TC; 85730-TC; 87040-TC; 87081; 94640; 94760; 97110-GP; 97530-GP; C1751; C1769; G0378; J0692; J1650; J2060; J7060; J7613; J7626

== ENCOUNTER 2021-04-02 02:11 | Emergency (ER) | payer OTHER, MEDICAID ==
[~2021-04-02] VITALS: Ht 167.6 cm; Wt 79.4 kg
--- NOTE | 2021-04-02 02:15 | NUR ---
Patient to ER bed 8 to gown for evaluation. Side rails up.
[2021-04-02 02:19] VITALS: BP_SYST 102
[2021-04-02] MEDS ORDERED: NACL 0.9% 1,000 ML IV ONE (02:30)
--- NOTE | 2021-04-02 02:45 | NUR ---
Dr. Harris [facility] for pt eval
[2021-04-02] MEDS ORDERED: DOCU-156 PO (02:56)
--- NOTE | 2021-04-02 03:00 | NUR ---
Pt BIBA from [facility] to ED C/O abnormal labs with Potassium of 7. VSS no s/s of acute distress, pt displaying severe dementia. Boarderline combative last picker and ER MD aware
[2021-04-02] MEDS ORDERED: PHENobarbital SODIUM 65 MG/ML VIAL ONE (03:23)
[2021-04-02] MEDS ORDERED: PHENobarbital SODIUM 65 MG/ML VIAL IVP ONE (03:30)
--- NOTE | 2021-04-02 04:00 | NUR ---
Multiple IV meds effective in calming pt ready for blood draw. Lab arrived at bedside however, refused to draw pt after pt verbalized she didn't want to draw
[2021-04-02] MEDS ORDERED: LORazepam 2 MG/ML VIAL IVP ONE (04:30)
[2021-04-02] MEDS ORDERED: DIPHENHYDRAMINE INJ 50 MG/ML VIAL IVP ONE (04:30)
--- NOTE | 2021-04-02 05:05 | NUR ---
VSS no s/s of acute distress Resting on gurney rails up
--- NOTE | 2021-04-02 06:09 | NUR ---
Dr. Harris stated " pt going back to [facility], pending lab results "
[2021-04-02 06:34] LABS: ALANINE AMINOTRANSFERASE 34 U/L (12-78); ALBUMIN 2.6 g/dL (3.4-4.8); ANION GAP 12 (5-15); ASPARTATE AMINOTRANSFERASE 25 U/L (10-37); CALCIUM 8.6 mg/dL (8.4-11.0); CHLORIDE 103 mmol/L (98-107); CREATININE 1.18 mg/dL (0.55-1.30); GLUCOSE 108 mg/dL (70-99); POTASSIUM 5.2 mmol/L (3.5-5.1); SODIUM SERUM 131 mmol/L (136-145); TOTAL BILIRUBIN 0.6 mg/dL (0.0-1.0); UREA NITROGEN, BLOOD 66 mg/dL (8-21)
--- NOTE | 2021-04-02 06:35 | NUR ---
Dr. Anthony to bedside for pt re - eval
--- NOTE | 2021-04-02 07:56 | NUR ---
assumed patient care 85 years old female with dementia sent to er for elevated potassium, condition improved will return to [facility] awaiting for ambulance transfer.
[2021-04-02 08:49] VITALS: BP_SYST 115
--- NOTE | 2021-04-02 08:53 | NUR ---
Patient/EMT given written and verbal discharge instructions and verbalizes understanding. ER MD discussed with patient the results and treatment provided. Patient in stable condition. ID arm band removed. IV catheter removed intact and dressing applied, no active bleeding. Patient educated on pain management and to follow up with PMD. Pain Scale . Opportunity for questions provided and answered. Medication side effect fact sheet provided.
== END 2021-04-02 08:53 ==
LOC: SED 02:11
DX: E86.0 Dehydration (principal); E87.5 Hyperkalemia; I10 Essential (primary) hypertension; Z79.899 Other long term (current) drug therapy
CPT/HCPCS: 36415; 80053; 96361; 96374; 96375; 99284; J1200; J2060; J2560; J7030

== ENCOUNTER 2021-04-04 23:51 | Inpatient (IN) | payer OTHER, MEDICAID, SELFPAY ==
[~2021-04-04] VITALS: Ht 162.6 cm; Wt 64.0 kg
[~2021-04-04 23:51] MED LIST changes: +DOCU-156 PO; -DOCU250C14 PO
[2021-04-05] VITALS (16 sets, daily range): BP systolic 78–121
--- NOTE | 2021-04-05 01:35 | NUR ---
Patient to ER bed 4 to gown for evaluation. Side rails up. Report given to STEPHANIE VELASQUEZ.
[2021-04-05] MEDS ORDERED: NS 500 ML IV ONE ×2 (02:30→04:45)
--- NOTE | 2021-04-05 02:35 | NUR ---
Patient hypotensive. MD notified. Orders received for fluid IV bolus
[2021-04-05] MEDS ORDERED: PIPERACILLIN/TAZO 3.375 GM in NS 50 ML IV ONE (03:15)
[2021-04-05] MEDS ORDERED: NACL 0.9% 1,000 ML IV ONE (03:15)
[2021-04-05 03:22] LABS: BASOPHILS % (AUTO) 0.1 % (0.0-2.0); HEMATOCRIT 36.6 % (36-48); HEMOGLOBIN 11.9 g/dL (12.0-16.0); LYMPHOCYTES # (AUTO) 1.8 K/uL (1.0-5.5); MEAN CORPUSCULAR HEMOGLOBIN 29 pg (27-31); MEAN CORPUSCULAR HGB CONC 33 % (32-36); MEAN CORPUSCULAR VOLUME 88 fL (79.0-98.0); MONOCYTES # (AUTO) 1.3 K/uL (0.0-1.0); MONOCYTES % (AUTO) 4.3 % (1.7-9.3); NEUTROPHILS # (AUTO) 27.8 K/uL (1.8-7.7); NEUTROPHILS % (AUTO) 89.6 % (40.0-70.0); PLATELET COUNT (AUTO) 136 K/uL (130-430); RED BLOOD CELL COUNT(AUTO) 4.16 MIL/uL (4.2-6.2); RED CELL DISTRIBUTION WIDTH 14.2 % (9.0-15.0)
--- NOTE | 2021-04-05 03:25 | NUR ---
Critical lab reporting - COVID positive. notified
[2021-04-05 03:32] LABS: ANION GAP 10 (5-15); CHLORIDE 106 mmol/L (98-107); GLUCOSE 112 mg/dL (70-99); POTASSIUM 4.3 mmol/L (3.5-5.1); SODIUM SERUM 133 mmol/L (136-145)
[2021-04-05 03:33] LABS: INR 1.1 (0.8-1.2); PROTHROMBIN TIME 11.3 SECS (9.5-12.5)
[2021-04-05 03:38] LABS: ALANINE AMINOTRANSFERASE 22 U/L (12-78); ALBUMIN 1.9 g/dL (3.4-4.8); ASPARTATE AMINOTRANSFERASE 18 U/L (10-37); CALCIUM 8.4 mg/dL (8.4-11.0); LIPASE 39 U/L (73-393); TOTAL BILIRUBIN 0.4 mg/dL (0.0-1.0); UREA NITROGEN, BLOOD 37 mg/dL (8-21)
[2021-04-05 03:40] LABS: CREATININE 1.37 mg/dL (0.55-1.30)
--- NOTE | 2021-04-05 03:42 | NUR ---
INSERTED SERVIN CATH F-18, WITH 10ML NS BALOON, HOOKED TO DRAINAGE BAG, DRAINED WITH PALE YELLOW BROWN CLOUDY URINE ABOUT 20CC.
[2021-04-05 04:27] LABS: CLARITY/URINE TURBID (CLEAR); COLOR,URINE GREEN (YELLOW); GLUCOSE,URINE NEGATIVE (NEGATIVE); KETONES,URINE TRACE (NEGATIVE); PROTEIN URINE 3+ (NEGATIVE)
[2021-04-05 04:28] LABS: BILIRUBIN,URINE 1+ (NEGATIVE); BLOOD, URINE 3+ (NEGATIVE); LEUKOCYTE ESTERASE ,URINE 3+ (NEGATIVE); NITRITE, URINE POSITIVE (NEGATIVE); UROBILINOGEN,URINE 0.2 (0.2-1.0)
[2021-04-05 04:30] LABS: C-REACTIVE PROTEIN QUANT 13.5 mg/dL (0-0.5)
[2021-04-05] MEDS ORDERED: PIPERACILLIN/TAZOBACTAM 3.375 GM/VIAL (ZOSYN) IV ONE (04:34)
[2021-04-05 04:51] LABS: BACTERIA,URINE MANY /HPF (None Seen); MUCUS,URINE None Seen /LPF (None Seen); URINE AMORPHOUS PHOSPHATES 1+ /HPF (None Seen); WBC,URINE 80-100 /HPF (0-3)
--- NOTE | 2021-04-05 04:57 | NUR ---
Patient moved to bed 7
[2021-04-05 05:13] LABS: FIBRINOGEN 419 mg/dL (200-400)
[2021-04-05] MEDS ORDERED: ACETAMINOPHEN 650 MG SUPP.RECT RC PRN (05:30)
[2021-04-05] MEDS ORDERED: PIPERACILLIN/TAZO 3.375/DEX-IS 50 ML IV SCH (06:00)
--- NOTE | 2021-04-05 07:48 | NUR ---
85 years old female send to er for GT tube replacement, patient awaiting for icu bed with sepsis, condition fair will continue to monitor.
[2021-04-05] MEDS ORDERED: PIPERACILLIN/TAZOBACTAM 2.25 GM in NS 50 ML IV SCH (08:00)
--- NOTE | 2021-04-05 08:55 | NUR ---
patient hypotensive call out to admitting MD.
--- NOTE | 2021-04-05 10:05 | NUR ---
Patient will be admitted to care of nurse Valeriano. Admitted to unit. Will go to room . Belongings list completed. Complete and up to date summary report printed. SBAR report to be given at bedside with opportunity for questions.
--- NOTE | 2021-04-05 10:10 | NUR ---
RECEIVED PT: RECEIVED SBAR REPORTING BEDSIDE. PT PLACED ON MONITOR AND MADE COMFORTABLE. ALL CARE ASSUMED.
--- NOTE | 2021-04-05 10:40 | NUR ---
DR PELAYO: DR PELAYO AT BEDSIDE. UPDATED ON PTS STATUS. GTUBE PLACEMENT AND MIDLINE ORDER TO COME. WILL CONTINUE TO MONITOR.
[2021-04-05] MEDS: D5NS 1,000 ML IV SCH ×3 (10:47→18:59)
[2021-04-05] MEDS ORDERED: ENOXAPARIN SODIUM 40 MG/0.4 ML SYRINGE SUBCUT SCH ×2 (11:15→21:00)
[2021-04-05] MEDS ORDERED: ENOXAPARIN SODIUM 30 MG/0.3 ML SYRINGE SUBCUT ONE (11:30)
[2021-04-05] MEDS: PIPERACILLIN/TAZOBACTAM 2.25 GM in NS 50 ML IV SCH ×3 (14:11→23:23)
--- NOTE | 2021-04-05 19:30 | NUR ---
Opening Note, Received report from day shift nurse via SBAR format. Patient is asleep in bed in no signs of distress. All care assumed.
[2021-04-05] MEDS: ASCORBIC ACID 500 MG TABLET PO SCH (21:43)
[2021-04-06] VITALS (24 sets, daily range): BP systolic 81–158
[2021-04-06] MEDS: D5NS 1,000 ML IV SCH ×3 (00:57→16:31)
[2021-04-06] MEDS: PIPERACILLIN/TAZOBACTAM 2.25 GM in NS 50 ML IV SCH ×4 (05:16→23:53)
[2021-04-06 07:05] LABS: BASOPHILS % (AUTO) 0.2 % (0.0-2.0); EOSINOPHILS # (AUTO) 0.1 K/uL (0.0-0.4); EOSINOPHILS % (AUTO) 0.4 % (0.0-4.0); HEMATOCRIT 35.6 % (36-48); HEMOGLOBIN 11.9 g/dL (12.0-16.0); LYMPHOCYTES # (AUTO) 1.8 K/uL (1.0-5.5); LYMPHOCYTES % (AUTO) 8.6 % (20.5-51.5); MEAN CORPUSCULAR HEMOGLOBIN 29 pg (27-31); MEAN CORPUSCULAR HGB CONC 33 % (32-36); MEAN CORPUSCULAR VOLUME 87 fL (79.0-98.0); MONOCYTES # (AUTO) 0.9 K/uL (0.0-1.0); MONOCYTES % (AUTO) 4.3 % (1.7-9.3); NEUTROPHILS # (AUTO) 18.1 K/uL (1.8-7.7); NEUTROPHILS % (AUTO) 86.5 % (40.0-70.0); PLATELET COUNT (AUTO) 121 K/uL (130-430); RED BLOOD CELL COUNT(AUTO) 4.11 MIL/uL (4.2-6.2); RED CELL DISTRIBUTION WIDTH 14.3 % (9.0-15.0); WHITE BLOOD COUNT (AUTO) 20.8 K/uL (4.8-10.8)
[2021-04-06 07:33] LABS: CALCIUM 7.6 mg/dL (8.4-11.0); CHLORIDE 110 mmol/L (98-107); GLUCOSE 127 mg/dL (70-99); POTASSIUM 3.3 mmol/L (3.5-5.1); SODIUM SERUM 137 mmol/L (136-145); UREA NITROGEN, BLOOD 27 mg/dL (8-21)
[2021-04-06 07:44] LABS: ANION GAP 15 (5-15); CREATININE 0.88 mg/dL (0.55-1.30)
[2021-04-06 08:23] LABS: C-REACTIVE PROTEIN QUANT 17.2 mg/dL (0-0.5)
[2021-04-06] MEDS: ASCORBIC ACID 500 MG TABLET PO SCH ×2 (09:00→20:53)
[2021-04-06] MEDS: CHOLECALCIFEROL (VITAMIN D3) 5,000 UNIT TABLET PO SCH (09:00)
[2021-04-06] MEDS: ENOXAPARIN SODIUM 30 MG/0.3 ML SYRINGE SUBCUT SCH (09:18)
[2021-04-06] MEDS ORDERED: LORazepam 2 MG/ML VIAL IVP ONE (10:00)
--- NOTE | 2021-04-06 16:26 | NUR ---
Called Dr. Heart with a consult,spoke with Barrie from doctors office
--- NOTE | 2021-04-06 16:59 | NUR ---
Nutrition Update [place] Scale 12 noted. Pt admitted for SOB. Diet: N/A BMI: 24 kg/m2 RD to follow per nutrition care standards.
[2021-04-06] MEDS ORDERED: POTASSIUM CHLORIDE 40 MEQ in NS 250 ML IV ONE (20:00)
[2021-04-06] MEDS: POTASSIUM CHLORIDE 20 mEq in 100 mL (PREMIX) 100 ML x 2 doses IV SCH ×2 (20:32→22:09)
[2021-04-07] VITALS (24 sets, daily range): BP systolic 87–150
--- NOTE | 2021-04-07 02:27 | NUR ---
Opening note Received report from day shift nurse at bedside. Patient is asleep in bed and on isolation precautions for COVID 19. VSS. All care assumed. Addendum: 04/07/21 at 0230 by James Butler RN input at 1930
[2021-04-07] MEDS: PIPERACILLIN/TAZOBACTAM 2.25 GM in NS 50 ML IV SCH ×3 (05:35→18:32)
[2021-04-07] MEDS: D5NS 1,000 ML IV SCH ×5 (06:09→21:00)
[2021-04-07 06:26] LABS: BASOPHILS % (AUTO) 0.3 % (0.0-2.0); EOSINOPHILS # (AUTO) 0.1 K/uL (0.0-0.4); EOSINOPHILS % (AUTO) 0.4 % (0.0-4.0); HEMATOCRIT 33.6 % (36-48); HEMOGLOBIN 11.1 g/dL (12.0-16.0); LYMPHOCYTES # (AUTO) 1.6 K/uL (1.0-5.5); LYMPHOCYTES % (AUTO) 11.6 % (20.5-51.5); MEAN CORPUSCULAR HEMOGLOBIN 29 pg (27-31); MEAN CORPUSCULAR HGB CONC 33 % (32-36); MEAN CORPUSCULAR VOLUME 87 fL (79.0-98.0); MONOCYTES # (AUTO) 0.6 K/uL (0.0-1.0); MONOCYTES % (AUTO) 4.7 % (1.7-9.3); NEUTROPHILS # (AUTO) 11.2 K/uL (1.8-7.7); PLATELET COUNT (AUTO) 85 K/uL (130-430); RED BLOOD CELL COUNT(AUTO) 3.88 MIL/uL (4.2-6.2); RED CELL DISTRIBUTION WIDTH 14.8 % (9.0-15.0); WHITE BLOOD COUNT (AUTO) 13.5 K/uL (4.8-10.8)
[2021-04-07 06:42] LABS: ANION GAP 12 (5-15); CALCIUM 7.7 mg/dL (8.4-11.0); CHLORIDE 118 mmol/L (98-107); GLUCOSE 124 mg/dL (70-99); POTASSIUM 3.2 mmol/L (3.5-5.1); SODIUM SERUM 142 mmol/L (136-145); UREA NITROGEN, BLOOD 23 mg/dL (8-21)
--- NOTE | 2021-04-07 07:30 | NUR ---
Received report from night stocker nurse at bedside. Patient is asleep in bed and on isolation precautions for COVID 19. VSS. All care assumed.
[2021-04-07] MEDS ORDERED: KCL 40 mEq in 100 mL (PREMIX) 100 ML IV ONE (09:15)
--- NOTE | 2021-04-07 09:30 | NUR ---
Dr. Heart was seen for GT placement consult. Per Dr. Heart, since patient is still on Isolation for COVID, it is too early to start GT placement. Dr. Heart verbally order for NG tube placement. If patient is restless and will try to pull out NG tube, may start of TPN per pharmacy dose.
[2021-04-07] MEDS: CHOLECALCIFEROL (VITAMIN D3) 5,000 UNIT TABLET PO SCH (09:46)
[2021-04-07] MEDS: ENOXAPARIN SODIUM 30 MG/0.3 ML SYRINGE SUBCUT SCH (09:49)
[2021-04-07] MEDS: PANTOPRAZOLE SODIUM 40 MG/VIAL (PROTONIX) IVP SCH (09:51)
[2021-04-07] MEDS: ASCORBIC ACID 500 MG TABLET PO SCH ×2 (09:53→20:30)
--- NOTE | 2021-04-07 10:00 | NUR ---
Attempted NG tube placement. Patient is restless and trying to bite or fight primary nurse. As per Dr. Heart's recommendation, to start TPN per pharmacy dose if patient is noncompliant with NG tube.
[2021-04-07] MEDS ORDERED: DEXTROSE 50% JECT 50 ML DISP.SYRIN IVP PRN (11:45)
[2021-04-07] MEDS ORDERED: *PPN PER PHARMACY XX PRN (11:45)
[2021-04-07 14:16] LABS: PHOSPHORUS 1.6 mg/dL (2.7-4.5)
--- NOTE | 2021-04-07 17:33 | NUR ---
Dietitian Recommendations * Consider EN support first if NGT is available: Vital AF 1.2 at 65 ml/hr (goal rate); if bolus feedin ml Q4h (1560 ml/day), Free Water Flush: 150 ml Q6h via NGT Provides: 1872 kcal/day, 117 gm protein/day, and 1865 ml free water/day Meets: 98% of lower end of estimated caloric needs and 91% of upper end of estimated protein needs * If NGT placement is unsuccessful: TPN D50%, AA10% at 75 ml (goal rate) * D/C D5%NS at 150 ml/hr (612 kcal/day) once alternative nutrition support is initiated LP, RD Please refer to Nutrition Assessment for details. Addendum: 04/07/21 at [address] Amended: Links added. Addendum: 04/08/21 at [address] CORRECTION: * Consider EN support first if NGT is available: Vital AF 1.2 at 65 ml/hr (goal rate); if bolus feedin ml Q4h (1560 ml/day), Free Water Flush: 150 ml Q6h via NGT Provides: 1872 kcal/day, 117 gm protein/day, and 1865 ml free water/day Meets: 98% of lower end of estimated caloric needs and 91% of upper end of estimated protein needs * If NGT placement is unsuccessful: TPN D50%, AA10% at 75 ml (goal rate) via central line Provides: 1890 kcal/day, 90 gm protein/day, 1800 ml/day, and GIR: 4.9 gm CHO/kg/min Meets: 98% of lower end of estimated caloric needs and 94% of lower end of estimated protein needs * D/C D5%NS at 150 ml/hr (612 kcal/day) once alternative nutrition support is initiated Addendum: 04/08/21 at [address] CORRECTION: * Consider EN support first if NGT is available: Vital AF 1.2 at 65 ml/hr (goal rate); if bolus feedin ml Q4h (1560 ml/day), Free Water Flush: 150 ml Q6h via NGT Provides: 1872 kcal/day, 117 gm protein/day, and 1865 ml free water/day Meets: 98% of lower end of estimated caloric needs and 91% of upper end of estimated protein needs * If NGT placement is unsuccessful: PPN D20%, AA8.5% at 100 ml/hr (goal rate) via peripheral line Provides: 1224 kcal/day, 102 gm protein/day, 2400 ml/day, and GIR: 2.6 gm CHO/kg/min Meets: 64% of lower end of estimated caloric needs and 106% of lower end of estimated protein needs If/when central line is available: TPN D50%, AA10% at 75 ml (goal rate) via central line Provides: 1890 kcal/day, 90 gm protein/day, 1800 ml/day, and GIR: 4.9 gm CHO/kg/min Meets: 98% of lower end of estimated caloric needs and 94% of lower end of estimated protein needs * D/C D5%NS at 150 ml/hr (612 kcal/day) once alternative nutrition support is initiated
--- NOTE | 2021-04-07 18:30 | NUR ---
ALL LINENS CHANGED. PATIENT IN NO DISTRESS. PROVIDED COMFORT AND ADDRESSED CONCERNS. PATIENT IS RESTLING COMFORTABLY IN BED. ROOM AIR WITH 97% SpO2. ALL EXTREMITIES ELEVATED WITH PILLOWS. 1800H: BLOOD SUGAR 109 MG/DL. PPN WILL BE STARTED AT 2100H ORDERED. WILL ENDORSE TO NOC SHIFT RN FOR CONTINUITY OF CARE.
[2021-04-07] MEDS ORDERED: TPN PERIPHERAL 0.0001 ML, SODIUM ACETATE 40 MEQ, POTASSIUM ACETATE 20 MEQ, K PHOS 9 MM,... IV SCH ×9 (21:00)
[2021-04-07] MEDS ORDERED: KETOROLAC TROMETHAMINE 15 MG VIAL IM PRN (21:30)
[2021-04-07] MEDS ORDERED: GABAPENTIN 100 MG CAPSULE ONE (22:03)
[2021-04-07] MEDS: GABAPENTIN 100 MG CAPSULE PO SCH (22:06)
--- NOTE | 2021-04-07 23:00 | NUR ---
Pt. c/o generalized body pain; Dr. Guerrero made aware w/ new orders noted. Toradol adm IVP as ordered. Pt. fell asleep after. Attempted to give Neurontin orally but pt. refused. SB to SR on the scope w/ frequent PACs. Due meds. adm. PPN initiated @ 42 ml/hr Cardiac & resp. monitoring cont. Needs met.
[2021-04-08] VITALS (24 sets, daily range): BP systolic 91–137
[2021-04-08] MEDS: PIPERACILLIN/TAZOBACTAM 2.25 GM in NS 50 ML IV SCH ×4 (00:28→17:43)
--- NOTE | 2021-04-08 06:00 | NUR ---
Pt. slept well. SB to 50s when asleep w/ frequent PACs. SR when awake. Other VSS. On room air. Will cont. to monitor.
[2021-04-08] MEDS: D5NS 1,000 ML IV SCH (06:16)
[2021-04-08 07:02] LABS: ALANINE AMINOTRANSFERASE 9 U/L (12-78); ALBUMIN 1.6 g/dL (3.4-4.8); ANION GAP 14 (5-15); ASPARTATE AMINOTRANSFERASE 9 U/L (10-37); CALCIUM 7.6 mg/dL (8.4-11.0); CREATININE 0.98 mg/dL (0.55-1.30); GLUCOSE 106 mg/dL (70-99); PHOSPHORUS 1.4 mg/dL (2.7-4.5); POTASSIUM 3.3 mmol/L (3.5-5.1); SODIUM SERUM 149 mmol/L (136-145); TOTAL BILIRUBIN 0.5 mg/dL (0.0-1.0); UREA NITROGEN, BLOOD 21 mg/dL (8-21)
[2021-04-08 07:06] LABS: CHLORIDE 122 mmol/L (98-107)
[2021-04-08] MEDS: ASCORBIC ACID 500 MG TABLET PO SCH ×2 (08:22→22:59)
[2021-04-08] MEDS: PANTOPRAZOLE SODIUM 40 MG/VIAL (PROTONIX) IVP SCH (08:22)
[2021-04-08] MEDS: CHOLECALCIFEROL (VITAMIN D3) 5,000 UNIT TABLET PO SCH (08:23)
[2021-04-08] MEDS: GABAPENTIN 100 MG CAPSULE PO SCH ×2 (08:23→22:58)
[2021-04-08] MEDS: ENOXAPARIN SODIUM 30 MG/0.3 ML SYRINGE SUBCUT SCH (08:24)
--- NOTE | 2021-04-08 09:07 | NUR ---
Patient awake, alert, but was confused and in emotional distress. Off and on refusing medication. Drank water, able to clear secretions. Strong cough Oriented to self only needs speech therapist for mechanical swallowing and cognitive assistance patient vital signs are stable no physical distress noted Repositioned patient even though patient refused. await MD for further orders patient currently on PPN but not consuming enough on her own to prevent malnutrition. possible needs PEG in the future since patient voluntarily refuses manual feedings
--- NOTE | 2021-04-08 15:30 | NUR ---
Paged Dr. Miller regarding labs, potassium at 3.3, Sodium at 149, Calcium at 7.6, Phosphorus at 1.4. Her pharmacy will adjust the dose of K, Ca, Na, and P in her PPN bad tonight after 6 PM . at this time Patient vitals are stable, patient remains confused, forgetful, but stable... NADEEM Student Nurse
--- NOTE | 2021-04-08 17:51 | NUR ---
PAGED PAGED ZUHAIR STEWART AT [phone] SPOKE WITH EXCHANGE.
--- NOTE | 2021-04-08 17:57 | NUR ---
Spoke to Dr. Handy regarding Phos, calcium, sodium, potassium, and positive e coli in the urine no orders given pharmacy will adjust electrolytes per PPN and patient is on Zosyn...NADEEM student nurse
[2021-04-08] MEDS ORDERED: [UNRECOGNIZED DRUG - OTHER] IV SCH ×8 (21:00)
[2021-04-08] MEDS ORDERED: POTASSIUM ACETATE IV SCH ×8 (21:00)
[2021-04-08] MEDS ORDERED: K PHOS IV SCH ×8 (21:00)
[2021-04-08] MEDS ORDERED: TPN PERIPHERAL IV SCH ×8 (21:00)
[2021-04-09] VITALS (13 sets, daily range): BP systolic 95–133
[2021-04-09] MEDS: PIPERACILLIN/TAZOBACTAM 2.25 GM in NS 50 ML IV SCH ×2 (00:32→05:23)
[2021-04-09] MEDS: D5NS 1,000 ML IV SCH ×3 (03:00→20:36)
--- NOTE | 2021-04-09 06:00 | NUR ---
Pt. remains confused, Ox1 (self only), uncooperative w/ care w/ periods of crying & anger/hostility. VSS. SR to SB in the 50s on the scope w/ frequent PACs. On PPN @ 42 ml/hr; pt. refuses to eat only drinks water. Had 1 moderate BM; kept clean & dry. Coronado catheter drained adequately to cloudy yellow urine. CHG bath done. Repositioned for comfort. Cardiac & resp. monitoring continued. Needs met.
[2021-04-09 06:36] LABS: BASOPHILS % (AUTO) 0.3 % (0.0-2.0); EOSINOPHILS # (AUTO) 0.4 K/uL (0.0-0.4); EOSINOPHILS % (AUTO) 4.1 % (0.0-4.0); HEMATOCRIT 33.9 % (36-48); HEMOGLOBIN 11.2 g/dL (12.0-16.0); LYMPHOCYTES # (AUTO) 3.2 K/uL (1.0-5.5); LYMPHOCYTES % (AUTO) 30.2 % (20.5-51.5); MEAN CORPUSCULAR HEMOGLOBIN 29 pg (27-31); MEAN CORPUSCULAR HGB CONC 33 % (32-36); MEAN CORPUSCULAR VOLUME 86 fL (79.0-98.0); MONOCYTES % (AUTO) 9.4 % (1.7-9.3); PLATELET COUNT (AUTO) 84 K/uL (130-430); RED BLOOD CELL COUNT(AUTO) 3.94 MIL/uL (4.2-6.2); RED CELL DISTRIBUTION WIDTH 14.9 % (9.0-15.0); WHITE BLOOD COUNT (AUTO) 10.7 K/uL (4.8-10.8)
[2021-04-09 06:50] LABS: ALANINE AMINOTRANSFERASE 13 U/L (12-78); ALBUMIN 1.7 g/dL (3.4-4.8); ANION GAP 11 (5-15); ASPARTATE AMINOTRANSFERASE 12 U/L (10-37); CALCIUM 7.6 mg/dL (8.4-11.0); CHLORIDE 116 mmol/L (98-107); CREATININE 0.92 mg/dL (0.55-1.30); GLUCOSE 88 mg/dL (70-99); PHOSPHORUS 1.4 mg/dL (2.7-4.5); POTASSIUM 3.4 mmol/L (3.5-5.1); SODIUM SERUM 143 mmol/L (136-145); TOTAL BILIRUBIN 0.6 mg/dL (0.0-1.0); UREA NITROGEN, BLOOD 22 mg/dL (8-21)
--- NOTE | 2021-04-09 07:39 | NUR ---
Initial Shift report received from night RN for continuity of care. Bed clocked & in lowest position, call light within reach
[2021-04-09] MEDS: GABAPENTIN 100 MG CAPSULE PO SCH ×2 (08:25→20:36)
[2021-04-09] MEDS: CHOLECALCIFEROL (VITAMIN D3) 5,000 UNIT TABLET PO SCH (08:25)
[2021-04-09] MEDS: PANTOPRAZOLE SODIUM 40 MG/VIAL (PROTONIX) IVP SCH (08:25)
[2021-04-09] MEDS: ASCORBIC ACID 500 MG TABLET PO SCH ×2 (08:26→20:35)
[2021-04-09] MEDS: ENOXAPARIN SODIUM 30 MG/0.3 ML SYRINGE SUBCUT SCH (09:00)
--- NOTE | 2021-04-09 10:27 | NUR ---
Endorsement Pt transferred to M/S rm 122B. VSs are wnr & afebrile. No s&s of distress noted; Report given to Ness BROWN for continuity of care
[2021-04-09] MEDS: MEROPENEM 1 GM IVPB PREMIX 50 ML IV SCH (11:00)
[2021-04-09] MEDS: POTASSIUM ACETATE IV SCH ×8 (20:40)
[2021-04-09] MEDS: K PHOS IV SCH ×8 (20:40)
[2021-04-09] MEDS: TPN PERIPHERAL IV SCH ×8 (20:40)
[2021-04-09] MEDS: [UNRECOGNIZED DRUG - OTHER] IV SCH ×8 (20:40)
[2021-04-10] VITALS (7 sets, daily range): BP systolic 92–141
[2021-04-10] MEDS: MEROPENEM 1 GM IVPB PREMIX 50 ML IV SCH (00:01)
--- NOTE | 2021-04-10 00:21 | NUR ---
ATTEMPTED TO CHECK PT BLOOD SUGAR. PT BECAME VERY UPSET AND REFUSED TO HAVE BLOOD SUGAR CHECKED. WILL ATTEMPT TO CHECK BLOOD SUGAR AT 0600.
[2021-04-10] MEDS: D5NS 1,000 ML IV SCH ×3 (04:36→22:10)
[2021-04-10 06:47] LABS: BASOPHILS % (AUTO) 0.4 % (0.0-2.0); EOSINOPHILS # (AUTO) 0.5 K/uL (0.0-0.4); HEMATOCRIT 32.8 % (36-48); HEMOGLOBIN 10.9 g/dL (12.0-16.0); LYMPHOCYTES # (AUTO) 3.6 K/uL (1.0-5.5); LYMPHOCYTES % (AUTO) 31.8 % (20.5-51.5); MEAN CORPUSCULAR HEMOGLOBIN 28 pg (27-31); MEAN CORPUSCULAR HGB CONC 33 % (32-36); MEAN CORPUSCULAR VOLUME 85 fL (79.0-98.0); MONOCYTES # (AUTO) 0.8 K/uL (0.0-1.0); MONOCYTES % (AUTO) 6.7 % (1.7-9.3); NEUTROPHILS # (AUTO) 6.5 K/uL (1.8-7.7); NEUTROPHILS % (AUTO) 57.1 % (40.0-70.0); PLATELET COUNT (AUTO) 105 K/uL (130-430); RED BLOOD CELL COUNT(AUTO) 3.84 MIL/uL (4.2-6.2); RED CELL DISTRIBUTION WIDTH 14.9 % (9.0-15.0); WHITE BLOOD COUNT (AUTO) 11.4 K/uL (4.8-10.8)
[2021-04-10 07:52] LABS: ALANINE AMINOTRANSFERASE 12 U/L (12-78); ALBUMIN 1.6 g/dL (3.4-4.8); ANION GAP 10 (5-15); ASPARTATE AMINOTRANSFERASE 13 U/L (10-37); CALCIUM 7.7 mg/dL (8.4-11.0); CHLORIDE 115 mmol/L (98-107); CREATININE 0.91 mg/dL (0.55-1.30); GLUCOSE 128 mg/dL (70-99); PHOSPHORUS 1.7 mg/dL (2.7-4.5); POTASSIUM 3.6 mmol/L (3.5-5.1); SODIUM SERUM 141 mmol/L (136-145); TOTAL BILIRUBIN 0.4 mg/dL (0.0-1.0); UREA NITROGEN, BLOOD 21 mg/dL (8-21)
[2021-04-10] MEDS: ASCORBIC ACID 500 MG TABLET PO SCH ×2 (09:59→22:16)
[2021-04-10] MEDS: GABAPENTIN 100 MG CAPSULE PO SCH ×2 (10:00→22:14)
[2021-04-10] MEDS: PANTOPRAZOLE SODIUM 40 MG/VIAL (PROTONIX) IVP SCH (10:01)
[2021-04-10] MEDS: ENOXAPARIN SODIUM 30 MG/0.3 ML SYRINGE SUBCUT SCH (10:02)
[2021-04-10] MEDS: CHOLECALCIFEROL (VITAMIN D3) 5,000 UNIT TABLET PO SCH (10:09)
[2021-04-10] MEDS: ERTAPENEM SODIUM 1 GM in NS 50 ML IV SCH (12:14)
--- NOTE | 2021-04-10 15:13 | NUR ---
ST EVALUATION COMPLETED. ST TX NOT INDICATED AT THIS TIME. RECOMMEND PO DIET OF PUREE/THIN LIQUIDS WITH 1:1 SUPERVISION AND ASPIRATION PRECAUTIONS.
--- NOTE | 2021-04-10 19:30 | NUR ---
OPENING NOTES/ROUNDS RECEIVED REPORT FROM OUTGOING NURSE. PATIENT AWAKE, ALERT, & O X1, APPEARS CONFUSED. ON RA SATING AT 96%. PT APPEARS CALM AND RELAXED FACIAL EXPRESSION. VITAL SIGNS WNL. PT ON SERVIN DRAINING HECOTR COLORED URINE.. HAS 2 LUMEN PICC LINE RUNNING WITH D5 NS ON ONE AND TPN ON THE OTHER. COVID-19 POSITIVE.
[2021-04-10] MEDS: K PHOS IV SCH ×8 (20:44)
[2021-04-10] MEDS: POTASSIUM ACETATE IV SCH ×8 (20:44)
[2021-04-10] MEDS: [UNRECOGNIZED DRUG - OTHER] IV SCH ×8 (20:44)
[2021-04-10] MEDS: TPN PERIPHERAL IV SCH ×8 (20:44)
[2021-04-10] MEDS ORDERED: FAT EMULSIONS 250 ML IV ONE (21:00)
[2021-04-10] MEDS ORDERED: [UNRECOGNIZED DRUG - OTHER] IV SCH ×8 (21:00)
[2021-04-10] MEDS ORDERED: TPN PERIPHERAL IV SCH ×8 (21:00)
[2021-04-10] MEDS ORDERED: POTASSIUM ACETATE IV SCH ×8 (21:00)
[2021-04-10] MEDS ORDERED: K PHOS IV SCH ×8 (21:00)
[2021-04-11] VITALS (7 sets, daily range): BP systolic 97–114
[2021-04-11 07:46] LABS: ALANINE AMINOTRANSFERASE 14 U/L (12-78); ALBUMIN 1.5 g/dL (3.4-4.8); ANION GAP 12 (5-15); ASPARTATE AMINOTRANSFERASE 20 U/L (10-37); CALCIUM 7.7 mg/dL (8.4-11.0); CHLORIDE 114 mmol/L (98-107); CREATININE 0.71 mg/dL (0.55-1.30); GLUCOSE 124 mg/dL (70-99); POTASSIUM 4.2 mmol/L (3.5-5.1); SODIUM SERUM 142 mmol/L (136-145); TOTAL BILIRUBIN 0.4 mg/dL (0.0-1.0); UREA NITROGEN, BLOOD 25 mg/dL (8-21)
[2021-04-11 08:08] LABS: TRIGLYCERIDES 72 mg/dL (30-150)
[2021-04-11] MEDS: GABAPENTIN 100 MG CAPSULE PO SCH ×2 (09:51→20:52)
[2021-04-11] MEDS: CHOLECALCIFEROL (VITAMIN D3) 5,000 UNIT TABLET PO SCH (09:51)
[2021-04-11] MEDS: ASCORBIC ACID 500 MG TABLET PO SCH ×2 (09:51→20:52)
[2021-04-11] MEDS: PANTOPRAZOLE SODIUM 40 MG/VIAL (PROTONIX) IVP SCH (09:52)
[2021-04-11] MEDS: ENOXAPARIN SODIUM 30 MG/0.3 ML SYRINGE SUBCUT SCH (09:54)
--- NOTE | 2021-04-11 10:37 | NUR ---
Case mgt: S/W nurse Claudio re: getting PEG order so we can work on faxing that to the pt's conservator and PEG then inserted once pt is Covid neg--ERIKA RN
[2021-04-11] MEDS: ERTAPENEM SODIUM 1 GM in NS 50 ML IV SCH (11:49)
[2021-04-11] MEDS: D5NS 1,000 ML IV SCH (12:03)
[2021-04-11] MEDS: INSULIN REGULAR, HUMAN 100 UNITS/ML, 10 ML VIAL (humuLIN R) SUBCUT PRN ×2 (12:44→18:38)
--- NOTE | 2021-04-11 14:23 | NUR ---
[facility] CALLED BILLY MCINTYRE AT [phone] SPOKE WITH POOL.
--- NOTE | 2021-04-11 14:35 | NUR ---
Case mgt: Rec'd call from Nikko Sheldon pt's conservator-He is aware of probable order for PEG placement--his ph#[phone] and fax#[phone]--Nurse Claudio is calling MD Dr. Sexton for PEG order so he can fax consent to [place]--ERIKA RN
[2021-04-11] MEDS: K PHOS IV SCH ×9 (20:59)
[2021-04-11] MEDS: POTASSIUM ACETATE IV SCH ×9 (20:59)
[2021-04-11] MEDS: TPN PERIPHERAL IV SCH ×9 (20:59)
[2021-04-11] MEDS: [UNRECOGNIZED DRUG - OTHER] IV SCH ×9 (20:59)
--- NOTE | 2021-04-11 21:00 | NUR ---
Pt in bed, awake w/ confusion. Not in any acute distress/sob. Resp even & unlabored. afebrile. denies pain. pt is on TPN. w/ midline on FLAVIA basilic double lumen w/ transparent dressing dry and intact. pt has goldberg constantly draining yellow urine w/ adequate output. proper goldberg care provided. turned & repositioned. needs anticipated & attended to. call light w/in reach.
[2021-04-12 01:00] VITALS: BP_SYST 106
[2021-04-12 07:37] LABS: ALANINE AMINOTRANSFERASE 18 U/L (12-78); ALBUMIN 1.5 g/dL (3.4-4.8); ANION GAP 8 (5-15); ASPARTATE AMINOTRANSFERASE 26 U/L (10-37); CALCIUM 7.7 mg/dL (8.4-11.0); CHLORIDE 114 mmol/L (98-107); CREATININE 0.77 mg/dL (0.55-1.30); GLUCOSE 103 mg/dL (70-99); PHOSPHORUS 2.2 mg/dL (2.7-4.5); POTASSIUM 4.9 mmol/L (3.5-5.1); SODIUM SERUM 140 mmol/L (136-145); TOTAL BILIRUBIN 0.4 mg/dL (0.0-1.0); UREA NITROGEN, BLOOD 35 mg/dL (8-21)
[2021-04-12] MEDS: CHOLECALCIFEROL (VITAMIN D3) 5,000 UNIT TABLET PO SCH (09:00)
[2021-04-12 09:04] VITALS: BP_SYST 97
[2021-04-12 09:15] VITALS: BP_SYST 97
--- NOTE | 2021-04-12 09:15 | NUR ---
Nutrition F/U Admitting Diagnosis Sepsis, COVID Medical History Comment: Dementia, schizophrenia, and HTN per physician notes Pt also found w/ complicated UTI, dehydration, RADHA, severe malnutrition, and dysphagia per physician notes SARS-CoV-2 Ag (Rapid) Positive 04/[address] bedside visit deferred d/t airborne isolation precautions a/w COVID. Per EMR review, pt w/ PICC line in FLAVIA on TPN and pureed diet, however pt is not eating. Plan for PEG placement when pt is out of quarantine per MD note. Current Diet Order/Nutrition Support Pureed, D40, AA10 @70 ml/hr, 20%IL @10 ml/hr Provides: 1920 ml, 1958 kcal/day, 84 g protein/day (GIR: 3.6 gm CHO/kg/min) Meets: 87% of upper end of caloric needs and 88 % of protein needs. Pertinent Medications protonix IV, lovenox, VIT D3, VIT C Pertinent Labs WBC 13.5 H, BUN 23 H, BG 124 H, CRP 17.2 H Height (Feet) 5 feet Height (Inches) 4.00 inches Weight (Pounds) 141 pounds Weight (Calculated Kilograms) 63.766887 kilograms Patient Weight 63.957 kg Body Mass Index 24.20 kg/m2 %IBW 116 [place]/Adjusted Body Weight 120#/55 kg Estimated Energy Expenditure (kcals/day) 2243-6300 (30-35 kcal/kg CBW d/t sepsis) Estimated Protein Required (g/day) 96-128 (1.5-2 gm/kg CBW d/t sepsis) Estimated Fluid Required (l/day) 1.9-2.2 (1 ml/kcal/day for dehydration) Problem/Etiology/Signs/Symptoms Increased nutritional needs R/T metabolic demands AEB estimated nutritional requirements for sepsis and elevated WBC lab value. *Ongoing Expected Outcomes/Goals - Monitor provision of alternative nutrition support w/ goal of pt meeting at least 50% of estimated nutritional needs, labs trending WNL, normal GI function, and skin integrity/wt maintenance (*Ongoing) Dietitian Recommendations *Continue current TPN and encourage PO intake. * Consider EN support when GT is available: Vital AF 1.2 at 65 ml/hr (goal rate); if bolus feedin ml Q4h (1560 ml/day), Free Water Flush: 150 ml Q6h via NGT Provides: 1872 kcal/day, 117 gm protein/day, and 1865 ml free water/day Meets: 98% of lower end of estimated caloric needs and 91% of upper end of estimated protein needs Follow Up High Risk: F/U in 2-3 days
[2021-04-12] MEDS: ASCORBIC ACID 500 MG TABLET PO SCH ×2 (10:24→20:49)
[2021-04-12] MEDS: PANTOPRAZOLE SODIUM 40 MG/VIAL (PROTONIX) IVP SCH (10:24)
[2021-04-12] MEDS: ENOXAPARIN SODIUM 30 MG/0.3 ML SYRINGE SUBCUT SCH (10:25)
[2021-04-12] MEDS: GABAPENTIN 100 MG CAPSULE PO SCH ×2 (10:25→20:48)
[2021-04-12] MEDS: ERTAPENEM SODIUM 1 GM in NS 50 ML IV SCH (11:19)
[2021-04-12 11:47] LABS: BASOPHILS # (AUTO) 0.1 K/uL (0.0-0.2); EOSINOPHILS # (AUTO) 0.4 K/uL (0.0-0.4); EOSINOPHILS % (AUTO) 3.6 % (0.0-4.0); HEMATOCRIT 33.7 % (36-48); HEMOGLOBIN 11.2 g/dL (12.0-16.0); LYMPHOCYTES # (AUTO) 3.9 K/uL (1.0-5.5); LYMPHOCYTES % (AUTO) 32.9 % (20.5-51.5); MEAN CORPUSCULAR HEMOGLOBIN 28 pg (27-31); MEAN CORPUSCULAR HGB CONC 33 % (32-36); MEAN CORPUSCULAR VOLUME 85 fL (79.0-98.0); MONOCYTES % (AUTO) 8.8 % (1.7-9.3); NEUTROPHILS # (AUTO) 6.4 K/uL (1.8-7.7); NEUTROPHILS % (AUTO) 53.7 % (40.0-70.0); PLATELET COUNT (AUTO) 148 K/uL (130-430); RED BLOOD CELL COUNT(AUTO) 3.95 MIL/uL (4.2-6.2); RED CELL DISTRIBUTION WIDTH 15.1 % (9.0-15.0); WHITE BLOOD COUNT (AUTO) 11.9 K/uL (4.8-10.8)
[2021-04-12 12:47] VITALS: BP_SYST 101
[2021-04-12 16:00] VITALS: BP_SYST 100
[2021-04-12] MEDS: [UNRECOGNIZED DRUG - OTHER] IV SCH ×9 (20:54)
[2021-04-12] MEDS: TPN PERIPHERAL IV SCH ×9 (20:54)
[2021-04-12] MEDS: POTASSIUM ACETATE IV SCH ×9 (20:54)
[2021-04-12] MEDS: K PHOS IV SCH ×9 (20:54)
[2021-04-12] MEDS ORDERED: CALCIUM GLUCONATE IV SCH ×9 (21:00)
[2021-04-12] MEDS ORDERED: [UNRECOGNIZED DRUG - OTHER] IV SCH ×9 (21:00)
[2021-04-12] MEDS ORDERED: K PHOS IV SCH ×9 (21:00)
[2021-04-12] MEDS ORDERED: NA PHOS IV SCH ×9 (21:00)
[2021-04-12] MEDS ORDERED: TPN PERIPHERAL IV SCH ×9 (21:00)
[2021-04-12] MEDS: D5NS 1,000 ML IV SCH (21:37)
[2021-04-13] VITALS (7 sets, daily range): BP systolic 100–109
--- NOTE | 2021-04-13 | NUR ---
FRANC, BS 187, PT ADMINISTERED 2 UNITS HUM R PA CHANGED, CLEANED UP AND REPOSITIONED. MADE COMFORTABLE AND RESTING IN BED.
[2021-04-13] MEDS: INSULIN REGULAR, HUMAN 100 UNITS/ML, 10 ML VIAL (humuLIN R) SUBCUT PRN (00:38)
--- NOTE | 2021-04-13 01:30 | NUR ---
ROUNDS WHILE MAKING ROUNDS NOTED PT MIDLINE WAS LEAKING UPON FLUSHING. PT HAS TWO LUMEN PICC LINE WITH TPN RUNNING IN ONE LUMEN AND D5 NS RUNNING IN THE OTHER LUMEN. , DR AGUERO CONTACTED WHO GAVE A TO TO START A PERIPHERAL IV WITH D5 1/2 NS WITH 20 MEQ KCL. TO RUN AT 75ML/HR ORDER NOTED AND CARRIED OUT. PERIPHERAL IV STARTED ON LEFT ARM WITH 24 GUAGE. IV RUNNING AND FLUSHED ACCORDINGLY
[2021-04-13] MEDS ORDERED: KCL 20 mEq in D5/0.45NS 1000mL 1,000 ML IV ONE (01:44)
[2021-04-13] MEDS: KCL 20 mEq in D5/0.45NS 1000mL 1,000 ML IV SCH (02:53)
[2021-04-13 07:32] LABS: ALANINE AMINOTRANSFERASE 69 U/L (12-78); ALBUMIN 1.3 g/dL (3.4-4.8); ANION GAP 10 (5-15); ASPARTATE AMINOTRANSFERASE 102 U/L (10-37); CHLORIDE 110 mmol/L (98-107); CREATININE 0.74 mg/dL (0.55-1.30); GLUCOSE 99 mg/dL (70-99); POTASSIUM 4.8 mmol/L (3.5-5.1); SODIUM SERUM 136 mmol/L (136-145); TOTAL BILIRUBIN 0.4 mg/dL (0.0-1.0); UREA NITROGEN, BLOOD 35 mg/dL (8-21)
[2021-04-13 07:58] LABS: CALCIUM 8.4 mg/dL (8.4-11.0)
--- NOTE | 2021-04-13 08:00 | NUR ---
NOTES PATIENT ALERT AWAKE X 1 CONFUSED. HAS IV ACCESS ON THE LEFT FOREARM #24. ARMS SWOLLEN. AND NOT WORKING. TRIED TO INSERT BUT UNSUCCESSFUL. PICC LINE CHECKED IS OUT. PLACED 2 X2 ON THE RT UPPER ARM. HAS GLUCERNA SUPPLEMENT SHE TAKING, REFUSED TO EAT AT THIS TIME. CALL LIGHTS WITHIN REACH. BED LOW POSITION, ALARMED AND LOCKED. WILL CONTINUE TO MONITOR.
--- NOTE | 2021-04-13 09:00 | NUR ---
DR PELAYO CALLED X 2. NO CALL BACK YET.
[2021-04-13] MEDS: ERTAPENEM SODIUM 1 GM in NS 50 ML IV SCH (10:02)
[2021-04-13] MEDS: CHOLECALCIFEROL (VITAMIN D3) 5,000 UNIT TABLET PO SCH (10:03)
[2021-04-13] MEDS: ENOXAPARIN SODIUM 30 MG/0.3 ML SYRINGE SUBCUT SCH (10:03)
[2021-04-13] MEDS: PANTOPRAZOLE SODIUM 40 MG/VIAL (PROTONIX) IVP SCH (10:04)
[2021-04-13] MEDS: GABAPENTIN 100 MG CAPSULE PO SCH ×2 (10:04→20:51)
[2021-04-13] MEDS: ASCORBIC ACID 500 MG TABLET PO SCH ×2 (10:04→20:51)
--- NOTE | 2021-04-13 12:00 | NUR ---
DR PELAYO CALLED HE OK TO HAVE PICC LINE.
--- NOTE | 2021-04-13 13:53 | NUR ---
CALLED FOR [facility] GARIBAY FOR CONSENT FOR PICC LINE. AWAITING TO CALL BACK. LEAVE A MESSAGE.
[2021-04-13 14:35] LABS: INR 1.1 (0.8-1.2); PROTHROMBIN TIME 11.2 SECS (9.5-12.5)
--- NOTE | 2021-04-13 15:20 | NUR ---
SPOKE TO JESU FROM [facility]. SAID TO FAXED THE REQUEST FOR CONSENT. AND THEN WILL SEND IT BACK FOR THE CONSENT. AWAITING TO FAXED THE CONSENT BACK.
--- NOTE | 2021-04-13 17:41 | NUR ---
SPOKE TO HARPAL FROM [facility] REGARDING PICC LINE CONSENT, BUT THEY SENT PAPERWORKS TO BE COMPLETE AND SIGNED BY DR PELAYO AND SEND BACK TO THEM FOR COMPLETION REGARDING PICC LINE AND EGD CONSENT
--- NOTE | 2021-04-13 18:30 | NUR ---
PER CHARGE NURSE TAYLA SHE SPOKE TO DR PELAYO AND WILL CALL ERIN SESAY AND TALKED TO [employer] INSTRUCTOR TO FAXED THE PAPERWORKS WHICH DR PELAYO SIGNED REGARDING PROCEDURE TO BE DONE TO THE PATIENT. AND TO BE FAXED TO US. SO THAT THEY CAN DO EGD AND OTHER PROCEDURES.
[2021-04-13] MEDS ORDERED: CALCIUM GLUCONATE IV SCH ×9 (21:00)
[2021-04-13] MEDS ORDERED: NA PHOS IV SCH ×9 (21:00)
[2021-04-13] MEDS: D5NS 1,000 ML IV SCH (21:00)
[2021-04-13] MEDS ORDERED: [UNRECOGNIZED DRUG - OTHER] IV SCH ×9 (21:00)
[2021-04-13] MEDS ORDERED: K PHOS IV SCH ×9 (21:00)
[2021-04-13] MEDS ORDERED: TPN PERIPHERAL IV SCH ×9 (21:00)
[2021-04-14 01:29] VITALS: BP_SYST 110
[2021-04-14] MEDS ORDERED: CEFAZOLIN 1 GM IVPB PREMIX 50 ML IV ONE (07:30)
--- NOTE | 2021-04-14 07:40 | NUR ---
Initial Note Patient awake and alert, oriented to self only. Reoriented to time, place, event, room, and call light. No IV access at this time. Coronado catheter in place, patent, and draining to gravity. No pain or distress. COVID-19 isolation precautions. Saturating 97% on room air. Respirations even and nonlabored. Call light in reach, bed locked in lowest position with alarm on.
[2021-04-14] MEDS: KCL 20 mEq in D5/0.45NS 1000mL 1,000 ML IV SCH ×2 (07:42→12:00)
[2021-04-14 08:00] VITALS: BP_SYST 113
[2021-04-14] MEDS: PANTOPRAZOLE SODIUM 40 MG/VIAL (PROTONIX) IVP SCH ×2 (08:44→12:00)
[2021-04-14] MEDS: CHOLECALCIFEROL (VITAMIN D3) 5,000 UNIT TABLET PO SCH (08:48)
[2021-04-14] MEDS: ASCORBIC ACID 500 MG TABLET PO SCH ×2 (08:48→21:21)
[2021-04-14] MEDS: GABAPENTIN 100 MG CAPSULE PO SCH ×2 (08:48→21:21)
[2021-04-14] MEDS: ENOXAPARIN SODIUM 30 MG/0.3 ML SYRINGE SUBCUT SCH (08:50)
[2021-04-14 09:13] LABS: PROTHROMBIN TIME 10.4 SECS (9.5-12.5)
[2021-04-14 09:16] LABS: ALANINE AMINOTRANSFERASE 46 U/L (12-78); ALBUMIN 1.3 g/dL (3.4-4.8); ANION GAP 7 (5-15); CALCIUM 7.9 mg/dL (8.4-11.0); CHLORIDE 109 mmol/L (98-107); CREATININE 0.76 mg/dL (0.55-1.30); GLUCOSE 73 mg/dL (70-99); PHOSPHORUS 3.5 mg/dL (2.7-4.5); POTASSIUM 4.7 mmol/L (3.5-5.1); SODIUM SERUM 134 mmol/L (136-145); TOTAL BILIRUBIN 0.4 mg/dL (0.0-1.0); UREA NITROGEN, BLOOD 33 mg/dL (8-21)
[2021-04-14 09:18] LABS: ASPARTATE AMINOTRANSFERASE 49 U/L (10-37)
--- NOTE | 2021-04-14 09:25 | NUR ---
D/C COVID isolation precautions per Dr. Osmani GRAJEDA.
--- NOTE | 2021-04-14 10:40 | NUR ---
PICC line insertion PICC line inserted to right upper arm via STEPHANIE Leyva. CXR confirmed placement. Line patent with blood return. Patient tolerated well. Will continue to monitor.
[2021-04-14] MEDS: ERTAPENEM SODIUM 1 GM in NS 50 ML IV SCH (12:00)
--- NOTE | 2021-04-14 12:10 | NUR ---
Blood sugar 67 No signs or symptoms of hypoglycemia noted. Protocol initiated; will recheck blood glucose.
--- NOTE | 2021-04-14 14:23 | NUR ---
Rechecked blood sugar: 85.
--- NOTE | 2021-04-14 16:00 | NUR ---
Notes Patient resting in bed, no pain or distress. Call light in reach and bed locked in lowest position with alarm on. Encouraged to call.
--- NOTE | 2021-04-14 19:49 | NUR ---
Closing Note Patient asleep in bed, wakes to verbal stimuli. No pain or distress observed. IVF running per MD order. Coronado catheter patent and draining to gravity. Safety precautions in place throughout shift. Endorsed to night nurse.
[2021-04-14] MEDS: TPN PERIPHERAL IV SCH ×9 (21:19)
[2021-04-14] MEDS: [UNRECOGNIZED DRUG - OTHER] IV SCH ×9 (21:19)
[2021-04-14] MEDS: NA PHOS IV SCH ×9 (21:19)
[2021-04-14] MEDS: SODIUM ACETATE IV SCH ×9 (21:19)
[2021-04-15] VITALS (7 sets, daily range): BP systolic 100–137
[2021-04-15] MEDS: INSULIN REGULAR, HUMAN 100 UNITS/ML, 10 ML VIAL (humuLIN R) SUBCUT PRN ×2 (00:22→12:31)
--- NOTE | 2021-04-15 00:31 | NUR ---
NOTES BLOOD SUGAR CHECK; 192. ADMINISTERED 2 UNIT HUMULIN R
[2021-04-15] MEDS: KCL 20 mEq in D5/0.45NS 1000mL 1,000 ML IV SCH ×2 (06:17→18:19)
[2021-04-15] MEDS: ASCORBIC ACID 500 MG TABLET PO SCH ×2 (08:52→20:02)
[2021-04-15] MEDS: PANTOPRAZOLE SODIUM 40 MG/VIAL (PROTONIX) IVP SCH (08:52)
[2021-04-15] MEDS: CHOLECALCIFEROL (VITAMIN D3) 5,000 UNIT TABLET PO SCH (08:52)
[2021-04-15] MEDS: GABAPENTIN 100 MG CAPSULE PO SCH ×2 (08:52→20:02)
[2021-04-15] MEDS: ENOXAPARIN SODIUM 30 MG/0.3 ML SYRINGE SUBCUT SCH (08:53)
[2021-04-15] MEDS: ERTAPENEM SODIUM 1 GM in NS 50 ML IV SCH (12:31)
[2021-04-15] MEDS: SODIUM ACETATE IV SCH ×9 (20:50)
[2021-04-15] MEDS: NA PHOS IV SCH ×9 (20:50)
[2021-04-15] MEDS: TPN PERIPHERAL IV SCH ×9 (20:50)
[2021-04-15] MEDS: [UNRECOGNIZED DRUG - OTHER] IV SCH ×9 (20:50)
--- NOTE | 2021-04-15 21:50 | NUR ---
opening note patient is resting in bed watching in t.v. AOx 2 she was able to tell me her name and that she was in the hospital. tolerated medication with no issues but patient did not want to be changed or repositioned. She stated "I am fine I did not have a accident. maybe next time you come into my room. call light was within reach and bed was at lowest position
[2021-04-16 00:52] VITALS: BP_SYST 98
[2021-04-16] MEDS: KCL 20 mEq in D5/0.45NS 1000mL 1,000 ML IV SCH ×2 (02:00→16:50)
[2021-04-16] MEDS: INSULIN REGULAR, HUMAN 100 UNITS/ML, 10 ML VIAL (humuLIN R) SUBCUT PRN (06:41)
[2021-04-16 06:55] LABS: ALANINE AMINOTRANSFERASE 18 U/L (12-78); ALBUMIN 1.2 g/dL (3.4-4.8); ANION GAP 4 (5-15); ASPARTATE AMINOTRANSFERASE 18 U/L (10-37); CALCIUM 7.7 mg/dL (8.4-11.0); CHLORIDE 108 mmol/L (98-107); CREATININE 0.71 mg/dL (0.55-1.30); GLUCOSE 134 mg/dL (70-99); PHOSPHORUS 1.7 mg/dL (2.7-4.5); POTASSIUM 3.6 mmol/L (3.5-5.1); SODIUM SERUM 138 mmol/L (136-145); TOTAL BILIRUBIN 0.1 mg/dL (0.0-1.0); UREA NITROGEN, BLOOD 33 mg/dL (8-21)
[2021-04-16 08:00] VITALS: BP_SYST 118
--- NOTE | 2021-04-16 08:00 | NUR ---
AM ASSESSMENT PT ALERT, CONFUSED, "TAKE ME OUT OF MY BEDROOM, MAMA!, MAMA!," PT APPEARS TO BE CRYING, "GET OUT OF HERE I DON'T NEED YOU", REORIENTED PT, TALKED TO PT ABOUT 10 MINUTES, PATIENT CALMED DOWN AFTERWARDS.
[2021-04-16] MEDS: GABAPENTIN 100 MG CAPSULE PO SCH ×2 (09:00→22:06)
[2021-04-16] MEDS: ASCORBIC ACID 500 MG TABLET PO SCH ×2 (09:00→22:06)
[2021-04-16] MEDS: CHOLECALCIFEROL (VITAMIN D3) 5,000 UNIT TABLET PO SCH (09:00)
[2021-04-16] MEDS: ENOXAPARIN SODIUM 30 MG/0.3 ML SYRINGE SUBCUT SCH (09:00)
[2021-04-16] MEDS: PANTOPRAZOLE SODIUM 40 MG/VIAL (PROTONIX) IVP SCH (10:18)
[2021-04-16] MEDS: ERTAPENEM SODIUM 1 GM in NS 50 ML IV SCH (10:19)
--- NOTE | 2021-04-16 15:12 | NUR ---
CM: per dr. Robertson's note: possible PEG placement tomorrow. Dr Keen cleared Covid iso status, consent from conservator is on file.
[2021-04-16 17:11] VITALS: BP_SYST 112
--- NOTE | 2021-04-16 18:11 | NUR ---
TEST PT TO HAVE DOPPLER ULTRA SOUND OF HER ARMS, PT REFUSED, UNCOOPERATIVE.
[2021-04-16 20:00] VITALS: BP_SYST 105
--- NOTE | 2021-04-16 20:30 | NUR ---
opening note patient resting in bed with call light at her side. vital taken and patient PICC was checked and noted to be flushing with blood return.
[2021-04-16 20:40] VITALS: BP_SYST 105
[2021-04-16] MEDS ORDERED: SODIUM ACETATE IV SCH ×9 (21:00)
[2021-04-16] MEDS ORDERED: TPN PERIPHERAL IV SCH ×9 (21:00)
[2021-04-16] MEDS ORDERED: NA PHOS IV SCH ×9 (21:00)
[2021-04-16] MEDS ORDERED: [UNRECOGNIZED DRUG - OTHER] IV SCH ×9 (21:00)
[2021-04-17 01:02] VITALS: BP_SYST 123
--- NOTE | 2021-04-17 07:30 | NUR ---
Received report from overnight associate RN, and assumed patient care.
[2021-04-17] MEDS ORDERED: SIMETHICONE 40 MG/0.6 ML ML ONE (07:52)
[2021-04-17] MEDS ORDERED: MIDAZOLAM HCL 5 MG/5 ML VIAL ONE (07:53)
[2021-04-17] MEDS ORDERED: MEPERIDINE 100 MG INJ. 100 MG/ML VIAL ONE (07:53)
--- NOTE | 2021-04-17 08:10 | NUR ---
Patient was taken to GI lab for PEG placement, will wait for patient to return. No new orders noted at the moment, will reinforce if needed throughout the shift.
[2021-04-17 08:12] LABS: ALANINE AMINOTRANSFERASE 24 U/L (12-78); ALBUMIN 1.3 g/dL (3.4-4.8); ANION GAP 6 (5-15); ASPARTATE AMINOTRANSFERASE 27 U/L (10-37); CHLORIDE 106 mmol/L (98-107); CREATININE 0.65 mg/dL (0.55-1.30); GLUCOSE 141 mg/dL (70-99); PHOSPHORUS 1.9 mg/dL (2.7-4.5); POTASSIUM 3.6 mmol/L (3.5-5.1); SODIUM SERUM 140 mmol/L (136-145); TOTAL BILIRUBIN 0.3 mg/dL (0.0-1.0); UREA NITROGEN, BLOOD 32 mg/dL (8-21)
[2021-04-17 09:00] VITALS: BP_SYST 113
[2021-04-17] MEDS: CHOLECALCIFEROL (VITAMIN D3) 5,000 UNIT TABLET PO SCH (09:43)
[2021-04-17] MEDS: ASCORBIC ACID 500 MG TABLET PO SCH ×2 (09:43→22:03)
[2021-04-17] MEDS: PANTOPRAZOLE SODIUM 40 MG/VIAL (PROTONIX) IVP SCH (09:43)
[2021-04-17] MEDS: GABAPENTIN 100 MG CAPSULE PO SCH ×2 (09:43→22:03)
[2021-04-17] MEDS: ENOXAPARIN SODIUM 30 MG/0.3 ML SYRINGE SUBCUT SCH (09:45)
[2021-04-17] MEDS: KCL 20 mEq in D5/0.45NS 1000mL 1,000 ML IV SCH ×2 (09:49→22:08)
[2021-04-17] MEDS: ERTAPENEM SODIUM 1 GM in NS 50 ML IV SCH (11:00)
--- NOTE | 2021-04-17 17:00 | NUR ---
Dr. Guerrero at bedside, is aware of PEG placement and will to start diet CARLOS per MD order with jevity 1.2. Clarified order of continue to run TPN while patient is on puree diet and tube feed diet, per MD OK to have all until tube feeds goal is met then will reevaluate further orders. MD is aware of patient's breath sounds, sounding crackles to diminish but has no orders noted at the moment. Placed patient on sitting position elevated in 45 degrees. No complications noted at the moment, will reinforce if needed throughout the shift.
--- NOTE | 2021-04-17 17:31 | NUR ---
Nutrition F/U Admitting Diagnosis Sepsis, COVID Medical History Comment: Dementia, schizophrenia, and HTN per physician notes Pt also found w/ complicated UTI, dehydration, RADHA, severe malnutrition, and dysphagia per physician notes SARS-CoV-2 Ag (Rapid) Positive 04/05 Subjective Information: RD bedside visit deferred d/t airborne isolation precautions a/w COVID. RD rounded to MST unit this afternoon -- primary RN was on lunch break. Per EMR review, pt had PEG placement this morning, and GI note stated to start TF 8 hours after PEG placement (Jevity 1.2 at 30 ml/hr, increase by 10 ml/hr to goal of 60 ml/hr -- no water flush order noted; TPN Intakes: 1800 ml 04/16; abd is soft and non-distended w/ active bowel sounds; last BM x3 04/16; Kan scale: 13 w/ wound to sacrum; LUE w/ 1+ pitting edema. Plan for EN support is adequate/appropriate as it should provide 1728 kcal/day, 80 gm protein/day, and 1162 ml free water/day, which meets 90% of lower end of estimated caloric needs and 83% of lower end of estimated protein needs. Current Diet Order/Nutrition Support - Pureed x3 days - TPN D50%, AA10% at 75 ml (goal rate) via central line Provides: 1890 kcal/day, 90 gm protein/day, 1800 ml/day, and GIR: 4.9 gm CHO/kg/min Meets: 98% of lower end of estimated caloric needs and 94% of lower end of estimated protein needs - No active EN support order yet Pertinent Medications SSI,protonix IV, lovenox, VIT D3, VIT C Pertinent Labs WBC 11.9 H, BUN 32 H, BG 141 H, CRP 17.2 H Height (Feet) 5 feet Height (Inches) 4.00 inches Weight (Pounds) 141 pounds -- stable since 04/07 Weight (Calculated Kilograms) 63.657307 kilograms Patient Weight 63.957 kg Body Mass Index 24.20 kg/m2 %IBW [address] [place]/Adjusted Body Weight 120#/55 kg Estimated Energy Expenditure (kcals/day) 3495-2734 (30-35 kcal/kg CBW d/t sepsis) Estimated Protein Required (g/day) 96-128 (1.5-2 gm/kg CBW d/t sepsis) Estimated Fluid Required (l/day) 1.9-2.2 (1 ml/kcal/day for dehydration) Problem/Etiology/Signs/Symptoms Increased nutritional needs R/T metabolic demands AEB estimated nutritional requirements for sepsis and elevated WBC lab value. *Ongoing Expected Outcomes/Goals - Monitor provision of alternative nutrition support w/ goal of pt meeting at least 50% of estimated nutritional needs, labs trending WNL, normal GI function, and skin integrity/wt maintenance (*Ongoing) Dietitian Recommendations * Continue current pureed diet and TPN orders * Jevity 1.2 at 30 ml/hr, increase by 10 ml Qh to goal of 60 ml/hr, Free Water Flush: 150 ml Q4h Provides: 1728 kcal/day, 80 gm protein/day, and 2062 ml free water/day Meets: 90% of lower end of estimated caloric needs and 83% of lower end of estimated protein needs Follow Up High Risk: F/U in 2-3 days
--- NOTE | 2021-04-17 17:39 | NUR ---
Dietitian Recommendations * Continue current pureed diet and TPN orders * Jevity 1.2 at 30 ml/hr, increase by 10 ml Qh to goal of 60 ml/hr, Free Water Flush: 150 ml Q4h Provides: 1728 kcal/day, 80 gm protein/day, and 2062 ml free water/day Meets: 90% of lower end of estimated caloric needs and 83% of lower end of estimated protein needs LP, RD Please refer to Nutrition F/U for details.
[2021-04-17 20:00] VITALS: BP_SYST 131
--- NOTE | 2021-04-17 20:20 | NUR ---
Opening notes Pt awake, confused, VSS. No s/s distress noted. PICC line FLAVIA dressing C/D/I. GT feeding Jevity 1.2 running at 30cc/hr. Coronado catheter draining to gravity with yellow urine w/ sediments. L. arm and ebony heels maintained floated on pillows. Call light within reach. HOB maintained elevated. To monitor.
[2021-04-17] MEDS ORDERED: SODIUM ACETATE IV SCH ×11 (21:00)
[2021-04-17] MEDS ORDERED: TPN PERIPHERAL IV SCH ×11 (21:00)
[2021-04-17] MEDS ORDERED: SODIUM CHLORIDE IV SCH ×11 (21:00)
[2021-04-17] MEDS ORDERED: [UNRECOGNIZED DRUG - OTHER] IV SCH ×11 (21:00)
--- NOTE | 2021-04-17 21:50 | NUR ---
GT feeding Pt awake, confused, no s/s distress noted. GT feeding Jevity 1.2 running at 30cc/hr, placement verified, no residual noted. Meds passed. Water flush given as ordered. HOB maintained elevated. To monitor.
[2021-04-18 01:04] VITALS: BP_SYST 122
--- NOTE | 2021-04-18 05:45 | NUR ---
Closing notes Pt asleep, easily awakens, no s/s distress noted. BS checked 116. GT feeding running at 30cc/hr, no residual noted. Water flushes given as ordered. HOB maintained elevated. TPN infusing at 75cc/hr FLAVIA PICC line double lumen. Coronado catheter draining to gravity. Pt repositioned. Safety maintained. To endorse to AM nurse.
[2021-04-18 06:57] LABS: BASOPHILS # (AUTO) 0.1 K/uL (0.0-0.2); BASOPHILS % (AUTO) 0.9 % (0.0-2.0); EOSINOPHILS # (AUTO) 0.2 K/uL (0.0-0.4); EOSINOPHILS % (AUTO) 2.7 % (0.0-4.0); HEMATOCRIT 28.1 % (36-48); HEMOGLOBIN 9.3 g/dL (12.0-16.0); LYMPHOCYTES # (AUTO) 2.7 K/uL (1.0-5.5); LYMPHOCYTES % (AUTO) 30.7 % (20.5-51.5); MEAN CORPUSCULAR HEMOGLOBIN 29 pg (27-31); MEAN CORPUSCULAR HGB CONC 33 % (32-36); MEAN CORPUSCULAR VOLUME 88 fL (79.0-98.0); MONOCYTES # (AUTO) 0.7 K/uL (0.0-1.0); MONOCYTES % (AUTO) 7.8 % (1.7-9.3); NEUTROPHILS % (AUTO) 57.9 % (40.0-70.0); PLATELET COUNT (AUTO) 340 K/uL (130-430); RED BLOOD CELL COUNT(AUTO) 3.19 MIL/uL (4.2-6.2); RED CELL DISTRIBUTION WIDTH 15.3 % (9.0-15.0); WHITE BLOOD COUNT (AUTO) 8.7 K/uL (4.8-10.8)
[2021-04-18 07:24] LABS: ALANINE AMINOTRANSFERASE 23 U/L (12-78); ALBUMIN 1.3 g/dL (3.4-4.8); ANION GAP 5 (5-15); ASPARTATE AMINOTRANSFERASE 30 U/L (10-37); CHLORIDE 106 mmol/L (98-107); CREATININE 0.72 mg/dL (0.55-1.30); GLUCOSE 123 mg/dL (70-99); PHOSPHORUS 1.8 mg/dL (2.7-4.5); POTASSIUM 3.5 mmol/L (3.5-5.1); SODIUM SERUM 137 mmol/L (136-145); TOTAL BILIRUBIN 0.1 mg/dL (0.0-1.0); UREA NITROGEN, BLOOD 31 mg/dL (8-21)
[2021-04-18 08:00] VITALS: BP_SYST 108
[2021-04-18] MEDS: CHOLECALCIFEROL (VITAMIN D3) 5,000 UNIT TABLET PO SCH (08:58)
[2021-04-18] MEDS: ASCORBIC ACID 500 MG TABLET PO SCH ×2 (08:58→22:17)
[2021-04-18] MEDS: GABAPENTIN 100 MG CAPSULE PO SCH ×2 (08:58→22:17)
[2021-04-18] MEDS: ENOXAPARIN SODIUM 30 MG/0.3 ML SYRINGE SUBCUT SCH (09:01)
[2021-04-18] MEDS: PANTOPRAZOLE SODIUM 40 MG/VIAL (PROTONIX) IVP SCH (09:02)
[2021-04-18] MEDS: ERTAPENEM SODIUM 1 GM in NS 50 ML IV SCH (11:30)
[2021-04-18 12:23] VITALS: BP_SYST 102
[2021-04-18] MEDS: KCL 20 mEq in D5/0.45NS 1000mL 1,000 ML IV SCH (13:00)
--- NOTE | 2021-04-18 14:29 | NUR ---
Discharge Planning: YAMEL faxed pt referral to [facility] [phone] Addendum: 04/18/21 at 1550 by Janine MEJÍA YAMEL followed up on pt referral to [facility] [phone], per Jessenia pt needs to be off TPN, prior to readmission. BENJAMÍNP made CM aware.
[2021-04-18] MEDS ORDERED: FUROSEMIDE 20 MG/2 ML VIAL IVP ONE (14:30)
[2021-04-18] MEDS ORDERED: ALBUTEROL SULFATE 0.083% 2.5 MG/3 ML VIAL.NEB INH PRN (14:30)
[2021-04-18 14:55] VITALS: BP_SYST 102
[2021-04-18] MEDS ORDERED: ALBUTEROL MDI INHALATION 8 GM INH INH PRN (15:00)
[2021-04-18 16:33] VITALS: BP_SYST 109
--- NOTE | 2021-04-18 18:02 | NUR ---
PAGED PAGED IGGY ROSADO AT [phone] SPOKE WITH EXCHANGE SUPERVISOR FILES/
--- NOTE | 2021-04-18 20:10 | NUR ---
Opening notes Pt awake, confused, VSS. No s/s distress noted. TPN infusing on PICC line FLAVIA dressing C/D/I. GT feeding Jevity 1.2 running at 50cc/hr, no residual. Coronado catheter draining to gravity with yellow urine w/ sediments. L. arm and ebony heels maintained floated on pillows. Call light within reach. HOB maintained elevated. To monitor.
[2021-04-18 20:30] VITALS: BP_SYST 102
--- NOTE | 2021-04-18 20:35 | NUR ---
Received MD call Received Dr. Denise call and informed that Covid Rapid was re sent today and tested +. Per MD no need to isolate.
[2021-04-18] MEDS ORDERED: SODIUM CHLORIDE IV SCH ×11 (21:00)
[2021-04-18] MEDS ORDERED: [UNRECOGNIZED DRUG - OTHER] IV SCH ×11 (21:00)
[2021-04-18] MEDS ORDERED: SODIUM ACETATE IV SCH ×11 (21:00)
[2021-04-18] MEDS ORDERED: TPN PERIPHERAL IV SCH ×11 (21:00)
--- NOTE | 2021-04-18 22:00 | NUR ---
GT feeding Jevity increased to goal rate at 60cc/hr. No residual noted. HOB maintained elevated. To monitor.
[2021-04-19 00:22] VITALS: BP_SYST 105
--- NOTE | 2021-04-19 06:17 | NUR ---
Closing notes/wound care Pt asleep, easily awakens, no s/s distress noted. BS checked 135. GT feeding running at goal rate 60cc/hr, no residual noted. Water flushes given as ordered. Pt tolerating GT feeding well. HOB maintained elevated. TPN infusing at 79cc/hr FLAVIA PICC line double lumen. Coronado catheter draining to gravity. Pt repositioned. Safety maintained. To endorse to AM nurse Addendum: 04/19/21 at 0653 by Juanis Krishnan RN 0430 Wound care rendered to sacral area, small serous drainage, no odor noted. Cleansed w/ NS, patted dry and applied hydrogel and optifoam dressing.
[2021-04-19 08:30] VITALS: BP_SYST 126
[2021-04-19 08:45] VITALS: BP_SYST 123
[2021-04-19] MEDS: CHOLECALCIFEROL (VITAMIN D3) 5,000 UNIT TABLET PO SCH (09:30)
[2021-04-19] MEDS: PANTOPRAZOLE SODIUM 40 MG/VIAL (PROTONIX) IVP SCH (09:30)
[2021-04-19] MEDS: ENOXAPARIN SODIUM 30 MG/0.3 ML SYRINGE SUBCUT SCH (09:30)
[2021-04-19] MEDS: ASCORBIC ACID 500 MG TABLET PO SCH (09:30)
[2021-04-19] MEDS: GABAPENTIN 100 MG CAPSULE PO SCH (09:30)
[2021-04-19] MEDS: ERTAPENEM SODIUM 1 GM in NS 50 ML IV SCH (12:00)
[2021-04-19 12:32] VITALS: BP_SYST 113
--- NOTE | 2021-04-19 13:44 | NUR ---
Discharge Planning: DCP arranged transport with [facility] [phone] to [facility] [phone] Rm [phone]. DCP made nurse aware and pt packet was taken to nurse station
--- NOTE | 2021-04-19 15:30 | NUR ---
Hand off report given to Ivis at [facility] regarding transfer. Sent the patient via ambulance with director field services with stable vital signs BP 132/68 HR 101 O2 sat on room air at 94% Resp rate 22 Patient do not appear distressed or in pain.
[2021-04-19 16:36] VITALS: BP_SYST 120
== END 2021-04-19 15:30 | DRG 871 ==
LOC: SED 23:51 → SIC 04-05 05:22 → STU 04-09 09:53 → SMU 04-14 20:08
PROVIDERS: ADMIT Family Medicine; ATTEND Family Medicine
PROC: 05HY33Z Insertion of Infusion Device into Upper Vein, Percutaneous Approach (ICD-10-PCS; 2021-04-06)
PROC: B54MZZA Ultrasonography of Right Upper Extremity Veins, Guidance (ICD-10-PCS; 2021-04-06)
PROC: 02HV33Z Insertion of Infusion Device into Superior Vena Cava, Percutaneous Approach (ICD-10-PCS; 2021-04-14)
PROC: B548ZZA Ultrasonography of Superior Vena Cava, Guidance (ICD-10-PCS; 2021-04-14)
PROC: 0DH63UZ Insertion of Feeding Device into Stomach, Percutaneous Approach (ICD-10-PCS; principal; 2021-04-17 08:30)
DX: A41.51 Sepsis due to Escherichia coli [E. coli] (principal); U07.1 COVID-19; E43 Unspecified severe protein-calorie malnutrition; J12.82 Pneumonia due to coronavirus disease 2019; N39.0 Urinary tract infection, site not specified; Z43.1 Encounter for attention to gastrostomy; N17.9 Acute kidney failure, unspecified; J44.0 Chronic obstructive pulmonary disease with (acute) lower respiratory infection; R65.20 Severe sepsis without septic shock; F03.90 Unspecified dementia, unspecified severity, without behavioral disturbance, psychotic disturbance, mood disturbance, and anxiety; F20.9 Schizophrenia, unspecified; E86.0 Dehydration; R13.10 Dysphagia, unspecified; D64.9 Anemia, unspecified; I12.9 Hypertensive chronic kidney disease with stage 1 through stage 4 chronic kidney disease, or unspecified chronic kidney disease; E11.22 Type 2 diabetes mellitus with diabetic chronic kidney disease; N18.9 Chronic kidney disease, unspecified; Z68.24 Body mass index [BMI] 24.0-24.9, adult
CPT/HCPCS: 36415; 36600; 43246; 71045; 80048; 80053; 81000; 82803-TC; 82962; 83605; 83615; 83690; 83735; 83880; 84100; 84478; 84484; 85025; 85379; 85384; 85610-TC; 85730-TC; 86140; 86886; 86900; 86901; 87040; 87086; 92610-GN; 93005; 96361; 96365; 99285; C9113; G0378; J0610; J0690; J1335; J1650; J1815; J1885; J1940; J2060; J2175; J2185; J2250; J2543; J2560; J3475; J3480; J7131

== ENCOUNTER 2022-06-30 05:29 | Inpatient (IN) | payer OTHER, MEDICAID ==
[~2022-06-30] VITALS: Ht 172.7 cm; Wt 89.8 kg
[2022-06-30] VITALS (15 sets, daily range): BP systolic 117–160
[2022-06-30] MEDS ORDERED: cefTRIAXone 1 GM IVPB PREMIX 50 ML IV ONE (05:45)
[2022-06-30] MEDS ORDERED: NS 1000 ML IV.SOLN IV ONE (05:45)
[2022-06-30 06:31] LABS: HEMATOCRIT 33.4 % (36-48); HEMOGLOBIN 10.6 g/dL (12.0-16.0); MEAN CORPUSCULAR HEMOGLOBIN 29 pg (27-31); MEAN CORPUSCULAR HGB CONC 32 % (32-36); MEAN CORPUSCULAR VOLUME 92 fL (79.0-98.0); PLATELET COUNT (AUTO) 314 K/uL (130-430); RED BLOOD CELL COUNT(AUTO) 3.62 MIL/uL (4.2-6.2); RED CELL DISTRIBUTION WIDTH 18.7 % (9.0-15.0); WHITE BLOOD COUNT (AUTO) 24.4 K/uL (4.8-10.8)
[2022-06-30 07:00] LABS: ANION GAP 14 (5-15); CALCIUM 8.9 mg/dL (8.4-11.0); CHLORIDE 103 mmol/L (98-107); CREATININE 2.63 mg/dL (0.55-1.30); GLUCOSE 102 mg/dL (70-99); UREA NITROGEN, BLOOD 79 mg/dL (8-21)
[2022-06-30] MEDS ORDERED: NACL 0.9% 1,000 ML IV ONE ×2 (07:15→10:00)
[2022-06-30 07:21] LABS: ALANINE AMINOTRANSFERASE 22 U/L (12-78); ASPARTATE AMINOTRANSFERASE 24 U/L (10-37); TOTAL BILIRUBIN 0.7 mg/dL (0.0-1.0)
[2022-06-30] MEDS ORDERED: NOREPINEPHRINE 4 MG/4 ML VIAL IV ONE ×3 (07:43→13:12)
[2022-06-30] MEDS ORDERED: NOREPINEPHRINE BITARTRATE 4 MG in NS 246 ML IV ONE (07:45)
[2022-06-30] MEDS ORDERED: PIPERACILLIN/TAZO 3.375 GM in NS 50 ML IV SCH (08:00)
[2022-06-30] MEDS ORDERED: NOREPINEPHRINE BITARTRATE 4 MG in NS 246 ML IV PRN (08:00)
[2022-06-30] MEDS ORDERED: RIVA10TA PO (08:59)
[2022-06-30] MEDS ORDERED: ACET325T53 GT (08:59)
[2022-06-30] MEDS ORDERED: PANT20TA2 PO (08:59)
[2022-06-30] MEDS ORDERED: VITD2000 PO (08:59)
[2022-06-30] MEDS ORDERED: SIME80TA15 PO (08:59)
[2022-06-30] MEDS ORDERED: OSELTAMIVIR PHOSPHATE 75 MG CAPSULE PO SCH (09:15)
[2022-06-30] MEDS ORDERED: PIPERACILLIN/TAZOBACTAM 2.25 GM in NS 50 ML IV SCH (10:00)
[2022-06-30] MEDS ORDERED: PIPERACILLIN/TAZOBACTAM 2.25 GM in NS 100 ML IV ONE (10:00)
[2022-06-30 10:31] LABS: BAND % (MANUAL) 34 % (0-6); BASOPHILS % (MANUAL) 0 % (0-2); EOSINOPHILS % (MANUAL) 0 % (0-7); LYMPHOCYTES % (MANUAL) 2 % (20-46); METAMYELOCYTES % 5 % (0-0); MONOCYTES % (MANUAL) 2 % (0-11)
[2022-06-30] MEDS: OSELTAMIVIR PHOSPHATE 75 MG CAPSULE PO ONE ×2 (10:42→14:36)
[2022-06-30 10:58] LABS: BILIRUBIN,URINE NEGATIVE (NEGATIVE); BLOOD, URINE 3+ (NEGATIVE); CLARITY/URINE TURBID (CLEAR); COLOR,URINE BROWN (YELLOW); GLUCOSE,URINE NEGATIVE (NEGATIVE); KETONES,URINE NEGATIVE (NEGATIVE); LEUKOCYTE ESTERASE ,URINE 3+ (NEGATIVE); NITRITE, URINE NEGATIVE (NEGATIVE); PROTEIN URINE 3+ (NEGATIVE); UROBILINOGEN,URINE 0.2 (0.2-1.0)
[2022-06-30 11:00] LABS: BACTERIA,URINE FEW /HPF (None Seen); RBC,URINE 20-50 /HPF (0-3); WBC,URINE >100 /HPF (0-3)
[2022-06-30] MEDS ORDERED: NOREPINEPHRINE BITARTRATE 8 MG in NS 242 ML IV PRN (11:00)
[2022-06-30] MEDS ORDERED: ACETAMINOPHEN 650 MG/20.3 ML UDC GT PRN (12:00)
[2022-06-30] MEDS ORDERED: OSELTAMIVIR PHOSPHATE 6 MG/1 ML, 60 ML SUSP PO SCH (13:00)
[2022-06-30] MEDS ORDERED: NOREPINEPHRINE BITARTRATE 32 MG in NS 218 ML IV PRN (15:00)
[2022-06-30] MEDS: PIPERACILLIN/TAZO 2.25G/DEX-IS 50 ML IV SCH ×2 (18:00→23:41)
[2022-06-30] MEDS ORDERED: RIVAROXABAN 10 MG TABLET GT SCH (21:00)
[2022-07-01] VITALS: BP_SYST 131
[2022-07-01 01:00] VITALS: BP_SYST 112
[2022-07-01 02:00] VITALS: BP_SYST 108
[2022-07-01 03:00] VITALS: BP_SYST 89
[2022-07-01 04:00] VITALS: BP_SYST 98
[2022-07-01] MEDS ORDERED: EPINEPHrine JECT 0.1 MG/ML SYR ONE (05:00)
[2022-07-01] MEDS ORDERED: CALCIUM CHLORIDE 1 GM/10 ML DISP.SYRIN (14 mEq Ca++/SYR) ONE (05:00)
[2022-07-01] MEDS ORDERED: SODIUM BICARBONATE 8.4% JECT 50 MEQ/50 ML SYRINGE ONE (05:00)
[2022-07-01 05:32] LABS: BASOPHILS # (AUTO) 0.1 K/uL (0.0-0.2); BASOPHILS % (AUTO) 0.2 % (0.0-2.0); EOSINOPHILS # (AUTO) 0.1 K/uL (0.0-0.4); EOSINOPHILS % (AUTO) 0.3 % (0.0-4.0); HEMOGLOBIN 10.3 g/dL (12.0-16.0); LYMPHOCYTES # (AUTO) 1.4 K/uL (1.0-5.5); LYMPHOCYTES % (AUTO) 3.1 % (20.5-51.5); MEAN CORPUSCULAR HEMOGLOBIN 29 pg (27-31); MEAN CORPUSCULAR HGB CONC 30 % (32-36); MEAN CORPUSCULAR VOLUME 97 fL (79.0-98.0); MONOCYTES % (AUTO) 4.5 % (1.7-9.3); NEUTROPHILS # (AUTO) 40.6 K/uL (1.8-7.7); NEUTROPHILS % (AUTO) 91.9 % (40.0-70.0); PLATELET COUNT (AUTO) 276 K/uL (130-430); RED BLOOD CELL COUNT(AUTO) 3.52 MIL/uL (4.2-6.2); RED CELL DISTRIBUTION WIDTH 19.5 % (9.0-15.0)
[2022-07-01 05:41] LABS: WHITE BLOOD COUNT (AUTO) 44.2 K/uL (4.8-10.8)
[2022-07-01 05:53] LABS: ANION GAP 14 (5-15); CALCIUM 7.9 mg/dL (8.4-11.0); CHLORIDE 111 mmol/L (98-107); CREATININE 2.32 mg/dL (0.55-1.30); GLUCOSE 133 mg/dL (70-99); UREA NITROGEN, BLOOD 68 mg/dL (8-21)
[2022-07-01 06:11] LABS: ALANINE AMINOTRANSFERASE 128 U/L (12-78); ALBUMIN 1.7 g/dL (3.4-4.8); ASPARTATE AMINOTRANSFERASE 122 U/L (10-37); TOTAL BILIRUBIN 0.6 mg/dL (0.0-1.0)
[2022-07-01] MEDS ORDERED: PANTOPRAZOLE SODIUM 40 MG/VIAL (PROTONIX) IVP SCH (09:00)
[2022-07-01] MEDS ORDERED: cefTRIAXone 1 GM in D5W 50 ML IV SCH (09:00)
== END 2022-07-01 06:12 | DRG 871 ==
LOC: SED 05:29 → SMU 07:53 → SIC 10:21
PROVIDERS: ADMIT Internal Medicine; ATTEND Internal Medicine
PROC: 02HV33Z Insertion of Infusion Device into Superior Vena Cava, Percutaneous Approach (ICD-10-PCS; principal; 2022-06-30)
PROC: B548ZZA Ultrasonography of Superior Vena Cava, Guidance (ICD-10-PCS; 2022-06-30)
PROC: 0BH17EZ Insertion of Endotracheal Airway into Trachea, Via Natural or Artificial Opening (ICD-10-PCS; 2022-06-30)
PROC: 5A12012 Performance of Cardiac Output, Single, Manual (ICD-10-PCS; 2022-06-30)
DX: A41.9 Sepsis, unspecified organism (principal); J96.91 Respiratory failure, unspecified with hypoxia; R65.21 Severe sepsis with septic shock; N39.0 Urinary tract infection, site not specified; N17.9 Acute kidney failure, unspecified; E46 Unspecified protein-calorie malnutrition; F03.90 Unspecified dementia, unspecified severity, without behavioral disturbance, psychotic disturbance, mood disturbance, and anxiety; E86.0 Dehydration; D64.9 Anemia, unspecified; Z20.822 Contact with and (suspected) exposure to COVID-19; R13.10 Dysphagia, unspecified; J10.1 Influenza due to other identified influenza virus with other respiratory manifestations; F29 Unspecified psychosis not due to a substance or known physiological condition; Z86.16 Personal history of COVID-19; Z79.899 Other long term (current) drug therapy; I46.9 Cardiac arrest, cause unspecified; Z68.30 Body mass index [BMI] 30.0-30.9, adult; Z79.1 Long term (current) use of non-steroidal anti-inflammatories (NSAID); Z87.440 Personal history of urinary (tract) infections
CPT/HCPCS: 36415; 70450-TC; 71045; 76376; 76770; 80053; 81000; 83605; 83880; 84484; 85007; 85025; 85027; 87040; 87081; 87086; 87101; 92950; 94760; 96361; 96365; 99291; G9035; J0171; J0696; J2543; J3490; J7050